=== PATIENT | male | born 1985 | race Caucasian/White ===

== ENCOUNTER 2019-10-22 16:51 | Emergency (ER) | payer SELFPAY ==
[~2019-10-22] VITALS: Ht 177.8 cm; Wt 77.0 kg
[2019-10-22 17:02] VITALS: BP 125/82
--- NOTE | 2019-10-22 17:09 | PHYS DOC ---
General Adult EDM: Chief Complaint: BACK PAIN OR INJURY HPI: HPI: 33-year-old male presents with left-sided low back pain. The pain is actually below the top line of his buttocks. It is just to the left of center. The patient was pulling out a fence post about 5 days ago when he felt a pop and had sudden pain. The pain seems to be increased rather than getting better. It is severe at this time. It is most painful to stand up straight. It is painful to walk. The patient is already on baclofen. He was told 5 or 6 years ago that he had degenerative disks that will get worse over time. He has not taken any other pain medicine. He denies any other injuries or complaints. He denies numbness, tingling, altered sensation. Review of Systems: Review of Systems: Constitutional: Denies fever or chills Eyes: Denies change in visual acuity HENT: Denies nasal congestion or sore throat Respiratory: Denies cough or shortness of breath Cardiovascular: Denies chest pain or edema GI: Denies abdominal pain, nausea, vomiting, bloody stools or diarrhea : Denies dysuria Musculoskeletal: Low back pain Integument: Denies rash Neurologic: Denies headache, focal weakness or sensory changes Endocrine: Denies polyuria or polydipsia Lymphatic: Denies swollen glands Psychiatric: Denies depression or anxiety Heart Score: Risk Factors: Risk Factors: DM, Current or recent (<one month) smoker, HTN, HLP, family history of CAD, obesity. Risk Scores: Score 0 - 3: 2.5% MACE over next 6 weeks - Discharge Home Score 4 - 6: 20.3% MACE over next 6 weeks - Admit for Clinical Observation Score 7 - 10: 72.7% MACE over next 6 weeks - Early Invasive Strategies Allergies: Allergies: Allergies Coded Allergies Type Severity Reaction Last Updated Verified hydromorphone Allergy Unknown 10/22/19 Yes Physical Exam: PE: Constitutional: Well developed, well nourished, no acute distress, non-toxic appearance. [] HENT: Normocephalic, atraumatic, bilateral external ears normal, oropharynx moist, no oral exudates, nose normal. [] Eyes: PERRLA, EOMI, conjunctiva normal, no discharge. [] Neck: Normal range of motion, no tenderness, supple, no stridor. [] Cardiovascular:Heart rate regular rhythm, no murmur [] Lungs & Thorax: Bilateral breath sounds clear to auscultation [] Abdomen: Bowel sounds normal, soft, no tenderness, no masses, no pulsatile ma sses. [] Skin: Warm, dry, no erythema, no rash. [] Back: Tenderness of the left sacroiliac joint with surrounding muscle spasm. [] Extremities: No tenderness, no cyanosis, no clubbing, ROM intact, no edema. [] Neurologic: Alert and oriented X 3, normal motor function, normal sensory function, no focal deficits noted. [] Psychologic: Affect normal, judgement normal, mood normal. [] EKG: EKG: [] Radiology/Procedures: Radiology/Procedures: [] Impressions: EXAM: AP, lateral and lumbosacral spot views of the lumbar spine DATE: 10/22/2019 5:04 PM INDICATION: Low back pain, injury COMPARISON: No Prior FINDINGS: 5 nonrib-bearing lumbar-type vertebral bodies. Vertebral body heights are preserved. No spondylolisthesis. No acute fracture. Mild L3-4 disc height loss. IMPRESSION: No acute lumbar spine fracture or subluxation. Electronically signed by: Clayton Ibanez MD (10/22/2019 5:52 PM) [facility] DICTATED AND SIGNED BY: CLAYTON IBANEZ MD DATE: 10/22/191751 CC: KERRI LAGUNA DO; PCP,SARANYA ~ Course & Med Decision Making: Course & Med Decision Making Pertinent Labs and Imaging studies reviewed. (See chart for details) The patient's lumbar x-ray is negative for acute findings. Based on my exam, I believe the patient has left sacroiliitis. I have given 4 mg of morphine IM in the ED. I will discharge him with a short course of [place] 5/325 as well as 5 days of prednisone 50 mg. He will continue take his baclofen. He is stable for discharge at this time. [] Dragon Disclaimer: Janeth Disclaimer: This electronic medical record was generated, in whole or in part, using a voice recognition dictation system. Departure Departure: Impression: Primary Impression: Sacroiliac joint dysfunction of left side Disposition: 01 HOME/RESIDENCE PRIOR TO ADM Condition: STABLE Referrals: PCP,SARANYA (PCP) Patient Instructions: Sacroiliac Joint Dysfunction Scripts Prednisone (PREDNISONE) 50 Mg Tablet 1 TAB PO DAILY for sacroiliac joint pain, #5 TAB Prov: KERRI LAGUNA DO 10/22/19 Hydrocodone Bit/Acetaminophen (NORCO 5-325 TABLET) 1 Each Tablet 1 TAB PO PRN Q6HRS PRN for PAIN, #10 TAB 0 Refills Prov: KERRI LAGUNA DO 10/22/19 Justification of Admission: Justification of Admission: Justification of Admission Dx: N/A KERRI LAGUNA DO Oct 22, 2019 17:08
[2019-10-22] MEDS ORDERED: MORPHINE SULFATE 4 MG/ML DISP.SYRIN. IM ONE (17:15)
--- NOTE | 2019-10-22 17:55 | RAD ---
EXAM: AP, lateral and lumbosacral spot views of the lumbar spine DATE: 10/22/2019 5:04 PM INDICATION: Low back pain, injury COMPARISON: No Prior FINDINGS: 5 nonrib-bearing lumbar-type vertebral bodies. Vertebral body heights are preserved. No spondylolisthesis. No acute fracture. Mild L3-4 disc height loss. IMPRESSION: No acute lumbar spine fracture or subluxation. Electronically signed by: Clayton Ibanez MD (10/22/2019 5:52 PM) [facility]
[2019-10-22] MEDS ORDERED: HYDR-3165 PO (17:59)
[2019-10-22] MEDS ORDERED: PRED50TA PO (17:59)
== END 2019-10-22 18:05 | disposition home or self-care (01) ==
LOC: ER 16:51
DX: M43.8X7 Other specified deforming dorsopathies, lumbosacral region (principal); Z88.5 Allergy status to narcotic agent
CPT/HCPCS: 72100; 96372; 99283; J2270

== ENCOUNTER 2019-10-24 14:40 | Emergency (ER) | payer SELFPAY ==
[~2019-10-24] VITALS: Ht 177.8 cm; Wt 77.0 kg
[2019-10-24 14:40] VITALS: BP 125/82
[~2019-10-24 14:40] MED LIST: HYDR-3165 PO; PRED50TA PO
[2019-10-24] MEDS ORDERED: CONTRAST GIVEN MC PRN (15:00)
[2019-10-24] MEDS ORDERED: IOHEXOL 300 MG/ML 75 ML VIAL. IV ONE (15:00)
[2019-10-24] MEDS ORDERED: IV NORMAL SALINE 1,000ML 1,000 ML IV ONE (15:00)
[2019-10-24] MEDS ORDERED: ONDANSETRON PF 4 MG/2 ML VIAL. IVP ONE (15:30)
[2019-10-24] MEDS ORDERED: MORPHINE SULFATE 4 MG/ML DISP.SYRIN. IV ONE ×2 (15:30→17:30)
--- NOTE | 2019-10-24 15:34 | PHYS DOC ---
Past History Past Medical History: Angina Past Surgical History: Other Additional Past Surgical Histo: VASECTOMY Alcohol Use: None General Adult EDM: Chief Complaint: GROIN PAIN HPI: HPI: Patient is a 33-year-old male presents to the ED with a chief complaint of left groin pain. Patient states that he felt swelling in the left groin which came up yesterday while he was driving. Patient states that he was seen in the ER few days ago with pain in his left hip. Patient was discharged home with pain medication. Patient denies dysuria, urethral discharge. Patient denies fever, chills, nausea, vomiting, diarrhea, this urea, chest pain, shortness of breath. Review of Systems: Review of Systems: Constitutional: Denies fever or chills Eyes: Denies change in visual acuity HENT: Denies nasal congestion or sore throat Respiratory: Denies cough or shortness of breath Cardiovascular: Denies chest pain or edema GI: Denies abdominal pain, nausea, vomiting, bloody stools or diarrhea : Denies dysuria but complains of painful swelling in his left groin Musculoskeletal: Denies back pain or joint pain Integument: Denies rash Neurologic: Denies headache, focal weakness or sensory changes Heart Score: Risk Factors: Risk Factors: DM, Current or recent (<one month) smoker, HTN, HLP, family history of CAD, obesity. Risk Scores: Score 0 - 3: 2.5% MACE over next 6 weeks - Discharge Home Score 4 - 6: 20.3% MACE over next 6 weeks - Admit for Clinical Observation Score 7 - 10: 72.7% MACE over next 6 weeks - Early Invasive Strategies Current Medications: Current Meds: Current Medications Medications (Trade) Dose Ordered Sig/[facility] Start Time Stop Time Status Last Admin Dose Admin Info (Do NOT chart on this entry -- for MONITORING) 1 each PRN DAILY PRN 10/24/19 15:00 10/26/19 14:59 Iohexol (Omnipaque 300 Mg/ml) 75 ml 1X ONCE 10/24/19 15:00 10/24/19 15:01 DC 10/24/19 15:15 75 ML Morphine Sulfate (Morphine 4mg Syringe) 4 mg 1X ONCE 10/24/19 15:30 10/24/19 15:31 Ondansetron HCl (Zofran) 4 mg 1X ONCE 10/24/19 15:30 10/24/19 15:31 Sodium Chloride 1,000 ml @ 1,000 mls/hr 1X ONCE 10/24/19 15:00 10/24/19 15:59 Allergies: Allergies: Allergies Coded Allergies Type Severity Reaction Last Updated Verified hydromorphone Allergy Unknown ITCHY/RASH 10/24/19 Yes Physical Exam: PE: Constitutional: Well developed, well nourished, no acute distress, non-toxic appearance. [] HENT: Normocephalic, atraumatic Eyes: EOMI Neck: Normal range of motion, Supple Respiratory: No respiratory distress Abdomen: Bowel sounds normal, soft, no tenderness : Tender area in the left groin most likely a lymph node Extremities: No tenderness, ROM intact Neurologic: Alert and oriented X 3 EKG: EKG: [] Radiology/Procedures: Radiology/Procedures: [] Impressions: CT Abd/Pelvis IMPRESSION: 1. A prominent left inguinal lymph node is seen with mild associated infiltration and associated subcutaneous soft tissues infiltration. Although these findings may be related to soft tissue contusion, lymphadenitis is also a primary consideration, possibly from infectious or inflammatory process. However no definite suppuration or abscess formation is identified. 2. Mild bladder wall thickening may be reactive or seen with cystitis and can be correlated with urinalysis Course & Med Decision Making: Course & Med Decision Making Pertinent Labs and Imaging studies reviewed. (See chart for details) Ordered labs, UA, CT abdomen pelvis with IV contrast. Patient is also given morphine 4 mg IV and Zofran 4 mg IV in the ER. Dragon Disclaimer: Dragjuan luis Disclaimer: This electronic medical record was generated, in whole or in part, using a voice recognition dictation system. Departure Departure: Impression: Primary Impression: Lymphadenopathy Additional Impression: Cystitis Disposition: HOME/RESIDENCE PRIOR TO ADM Condition: STABLE Referrals: PCP,NO (PCP) Patient Instructions: Lymphangiography Additional Instructions: Discussed results and plan of care with patient. Patient is instructed to follow up with PCP in one to 2 days. Appropriate discharge instructions given to patient to return to the ED or to seek immediate medical evaluation. Patient is instructed to return to the ED if symptoms worsen or if any concerns. Scripts Sulfamethoxazole/Trimethoprim (BACTRIM DS TABLET) 1 Each Tablet 1 TAB PO BID for CYSTITIS for 10 Days, #20 TAB 0 Refills Prov: SUKHJINDER FAIRCHILD DO 10/24/19 Hydrocodone Bit/Acetaminophen (NORCO 5-325 TABLET) 1 Each Tablet 1 TAB PO PRN Q6HRS PRN for PAIN for 3 Days, #15 TAB 0 Refills Prov: SUKHJINDER FAIRCHILD DO 10/24/19 Justification of Admission: Justification of Admission: Justification of Admission Dx: SUKHJINDER Watts DO Oct 24, 2019 15:34
--- NOTE | 2019-10-24 15:35 | RAD ---
EXAM: CT Abdomen and Pelvis with IV contrast CLINICAL HISTORY: LEFT GROIN PAIN COMPARISON: none TECHNIQUE: Helical CT of the abdomen and pelvis was performed following the administration of IV contrast. Axial, coronal and sagittal reformatted images were generated. ---PQRS compliance statement - One or more of the following individualized dose reduction techniques were utilized for this study: 1. Automated exposure control 2. Adjustment of the mA and/or kV according to patient size 3. Use of iterative reconstruction technique--- FINDINGS: Lower chest: Lung bases are clear. Abdomen and pelvis: Liver and biliary system: No focal liver lesion. Gallbladder is normal. No biliary ductal dilatation. Spleen: Calcified granuloma are seen within the spleen. Pancreas: Unremarkable Adrenal glands: Unremarkable Kidneys: Symmetric nephrograms. No focal renal lesion. No hydronephrosis. No hydroureter. Lymph nodes/retroperitoneum: Although there is no abdominal or pelvic lymphadenopathy by size criteria, there are prominent left inguinal lymph nodes with mild associated infiltration for example a left inguinal lymph node measures 1.2 x 0.8 cm. Associated subcutaneous soft tissue infiltration is seen. Vessels: Aorta is normal in caliber. Bowel/Peritoneal cavity: Appendix is normal. Moderate colonic stool content is seen. No small or large bowel dilatation. No bowel obstruction. No abdominal or pelvic ascites. Abdominal wall: Subcutaneous infiltration overlying the left thigh in the region of a small lymph node as described above. Bladder: Mild bladder wall thickening may be seen with cystitis. Bones: Prominent Schmorl's node at the superior endplate of L4. No aggressive osseous lesion. IMPRESSION: 1. A prominent left inguinal lymph node is seen with mild associated infiltration and associated subcutaneous soft tissues infiltration. Although these findings may be related to soft tissue contusion, lymphadenitis is also a primary consideration, possibly from infectious or inflammatory process. However no definite suppuration or abscess formation is identified. 2. Mild bladder wall thickening may be reactive or seen with cystitis and can be correlated with urinalysis Electronically signed by: Clayton Ibanez MD (10/24/2019 3:32 PM) [facility]
[2019-10-24 15:36] LABS: BASO % 0 % (0-3); EOS % 0 % (0-3); HEMATOCRIT 46.6 % (39.0-53.0); LYMPH # 0.4 x10^3/uL (1.0-4.8); LYMPH % 8 % (24-48); MEAN CORPUSCULAR HEMOGLOBIN 30 pg (25-35); MEAN CORPUSCULAR HGB CONC 34 g/dL (31-37); MEAN CORPUSCULAR VOLUME 87 fL (79-100); MONO # 0.1 x10^3/uL (0.0-1.1); MONO % 2 % (0-9); NEUT # 4.8 x10^3uL (1.8-7.7); NEUT % 90 % (31-73); PLATELET COUNT 189 x10^3/uL (140-400); RED BLOOD COUNT 5.33 x10^6/uL (4.30-5.70); RED CELL DISTRIBUTION WIDTH 13.8 % (11.5-14.5); WHITE BLOOD COUNT 5.3 x10^3/uL (4.0-11.0)
[2019-10-24 15:42] LABS: ANION GAP 9 (6-14); BLOOD UREA NITROGEN 9 mg/dL (8-26); BUN/CREATININE RATIO 8 (6-20); CALCIUM 8.8 mg/dL (8.5-10.1); CARBON DIOXIDE 26 mmol/L (21-32); CHLORIDE 101 mmol/L (98-107); CREATININE 1.2 mg/dL (0.7-1.3); GFR 68.9; GLUCOSE 151 mg/dL (70-99); SODIUM 136 mmol/L (136-145)
[2019-10-24 15:48] LABS: ALBUMIN 3.7 g/dL (3.4-5.0); ALBUMIN/GLOBULIN RATIO 0.9 (1.0-1.7); ALK PHOS 114 U/L (46-116); ALT (SGPT) 88 U/L (16-63); AST (SGOT) 38 U/L (15-37); TOTAL BILIRUBIN 1.3 mg/dL (0.2-1.0); TOTAL PROTEIN 7.8 g/dL (6.4-8.2)
[2019-10-24 15:50] LABS: C REACTIVE PROTEIN < 0.5 mg/L (0-3.3)
[2019-10-24 16:45] LABS: BACTERIA,URINE 0 /HPF (0-FEW); BILIRUBIN,URINE NEG (NEG); CLARITY,URINE CLEAR; COLOR,URINE YELLOW; GLUCOSE,URINE NEG (NEG); NITRITE,URINE NEG (NEG); RBC,URINE RARE /HPF (0-2); SQUAMOUS EPITHELIAL CELL,UR OCC /LPF; UROBILINOGEN,URINE 0.2 mg/dL (0.2 mg/dL); WBC,URINE RARE /HPF (0-4)
[2019-10-24] MEDS ORDERED: SULF1TAB24 PO (17:07)
[2019-10-24] MEDS ORDERED: HYDR-3165 PO (17:07)
== END 2019-10-24 17:17 | disposition home or self-care (01) ==
LOC: ER 14:40
DX: N30.90 Cystitis, unspecified without hematuria (principal); R59.1 Generalized enlarged lymph nodes; R10.32 Left lower quadrant pain; R60.0 Localized edema; M25.552 Pain in left hip; Z90.89 Acquired absence of other organs; Z88.5 Allergy status to narcotic agent
CPT/HCPCS: 36415; 74177; 80053; 81001; 85025; 86140; 96374; 96375; 96376; 99285; J2270; J2405; J7030; Q9967

== ENCOUNTER 2019-10-26 16:27 | Emergency (ER) | payer SELFPAY ==
[~2019-10-26] VITALS: Ht 177.8 cm; Wt 77.0 kg
[~2019-10-26 16:27] MED LIST changes: +SULF1TAB24 PO
[2019-10-26 16:41] VITALS: BP 134/86
[2019-10-26] MEDS ORDERED: VALA10008 PO (16:54)
[2019-10-26] MEDS ORDERED: OXYC1TAB15 PO (16:54)
--- NOTE | 2019-10-26 16:55 | PHYS DOC ---
Past History Past Medical History: Angina Past Surgical History: Other Additional Past Surgical Histo: VASECTOMY Smoking: Non-smoker Alcohol Use: None Drug Use: None General Adult EDM: Chief Complaint: SKIN RASH/ABSCESS HPI: HPI: 33-year-old male presents with report of painful rash to left lower abdomen extending to his back which he noticed 2 days ago. Patient was seen recently in the emergency department x2 for concern for SI joint dysfunction and/or lymphadenopathy/infection. Patient had been started on 5-day course of prednisone 50 mg. Patient also has been prescribed a total of 25 tabs of [place] 5/325 mg in the past week. Imaging from recent visit showed lymphadenopathy to the groin. Patient reports pain is not well controlled with hydrocodone and therefore he "got rid of it ". Reports recent increase in stressful situations. Reports he is currently through going through a divorce. Review of Systems: Review of Systems: Constitutional: Denies fever or chills Eyes: Denies redness or eye pain HENT: Denies nasal congestion or sore throat Respiratory: Denies cough or shortness of breath Cardiovascular: Denies chest pain or palpitations GI: Reports left lower quadrant abdominal pain; denies nausea or vomiting : Denies dysuria or hematuria Musculoskeletal: Reports left-sided lower lumbar back pain Integument: Reports painful rash and skin lesions Neurologic: Denies headache, focal weakness or sensory changes Complete systems were reviewed and found to be within normal limits, except as documented in this note. Allergies: Allergies: Allergies Coded Allergies Type Severity Reaction Last Updated Verified hydromorphone Allergy Unknown ITCHY/RASH 10/24/19 Yes Physical Exam: PE: Constitutional: Well developed, well nourished, no acute distress, non-toxic appearance HENT: Normocephalic, atraumatic Eyes: Conjunctiva normal, no discharge Neck: Normal range of motion, supple Lungs & Thorax: No respiratory distress, equal chest rise and fall Skin: Warm, dry, no erythema, painful vesicular rash in groups extending from left lower quadrant to left lumbar region along dermatome without crossing midline Back: No midline tenderness, no CVA tenderness Extremities: No tenderness, ROM intact, no edema Neurologic: Alert and oriented X 3, no focal deficits noted Psychologic: Affect normal, judgment normal Current Patient Data: Vital Signs: Vital Signs Date Time Temp Pulse Resp B/P (MAP) Pulse Ox O2 Delivery O2 Flow Rate FiO2 6/27/20 16:41 97.9 76 18 134/86 (102) 98 EKG: EKG: [] Radiology/Procedures: Radiology/Procedures: [] Course & Med Decision Making: Course & Med Decision Making Patient presents with HPI and physical exam concerning for shingles rash. Patient recently had been given 5-day course of prednisone 50 mg. Patient also had been previously prescribed hydrocodone pain medication per [facility] and [facility] review. Antivirals initiated. Pain addressed. Patient stable for discharge with outpatient follow-up with PCP. Discussed findings and plan with patient, who acknowledges understanding and agreement. Janeth Disclaimer: Janeth Disclaimer: This electronic medical record was generated, in whole or in part, using a voice recognition dictation system. Departure Departure: Impression: Primary Impression: Shingles Qualified Codes: B02.9 - Zoster without complications Disposition: HOME/RESIDENCE PRIOR TO ADM Condition: STABLE Referrals: PCP,NO (PCP) Patient Instructions: Shingles, [id number] Additional Instructions: May also use over the counter Ibuprofen 600mg (three over the counter tabs) three times daily. Scripts Valacyclovir Hcl (VALACYCLOVIR) 1,000 Mg Tablet 1 TAB PO TID for Shingles, #21 TAB Prov: MANUEL MUNOZ DO 10/26/19 Oxycodone Hcl/Acetaminophen (PERCOCET 5-325 MG TABLET ) 1 Each Tablet 0.5-1 TAB PO Q4-6HRS PRN for PAIN MDD 2 Tablet(s), #8 TAB 0 Refills Prov: MANUEL MUNOZ DO 10/26/19 Justification of Admission: Justification of Admission: Justification of Admission Dx: N/A MANUEL MUNOZ DO Oct 26, 2019 16:55
[2019-10-26] MEDS ORDERED: valACYclovir 500 MG TABLET. PO ONE (17:00)
[2019-10-26] MEDS ORDERED: oxyCODONE/APAP 5/325 1 TAB TABLET PO ONE (17:00)
[2019-10-26] MEDS ORDERED: KETOROLAC 30 MG/ML VIAL. IM ONE (17:15)
== END 2019-10-26 17:07 | disposition home or self-care (01) ==
LOC: ER 16:27
DX: B02.9 Zoster without complications (principal); R10.32 Left lower quadrant pain; R21 Rash and other nonspecific skin eruption; M54.5 Low back pain; Z90.89 Acquired absence of other organs; Z98.890 Other specified postprocedural states; Z88.5 Allergy status to narcotic agent
CPT/HCPCS: 99283

== ENCOUNTER 2019-11-09 15:06 | Emergency (ER) | payer SELFPAY ==
[~2019-11-09] VITALS: Ht 185.4 cm; Wt 84.0 kg
[~2019-11-09 15:06] MED LIST changes: +OXYC1TAB15 PO; +VALA10008 PO
[2019-11-09 15:22] VITALS: BP 108/72
--- NOTE | 2019-11-09 15:42 | PHYS DOC ---
Past History Past Medical History: No Pertinent History Past Surgical History: No Surgical History Additional Past Surgical Histo: VASECTOMY Smoking: Non-smoker Additional Smoking Information: pt chews Alcohol Use: Occasionally Drug Use: None General Adult EDM: Chief Complaint: MECHANICAL FALL HPI: HPI: Patient is a 33-year-old male who presented to ER today for evaluation of low back pain and left knee pain. Patient was on a roof about 9 feet above, rolled out landed on his feet, then stumbled and fell backward on his back. Patient complained of left knee and low back pain since. Patient denies any head or neck injury, denies any bowel or bladder incontinence, no upper back pain, no upper extremity pain. Patient denies any hip pain, no pelvic pain, no feet or heel pain. Patient denies any pain when he walks on his feet, pain in his left knee when he twisted. Review of Systems: Review of Systems: Constitutional: Denies fever or chills Eyes: Denies change in visual acuity HENT: Denies nasal congestion or sore throat Respiratory: Denies cough or shortness of breath Cardiovascular: Denies chest pain or edema GI: Denies abdominal pain, nausea, vomiting, bloody stools or diarrhea : Denies dysuria Musculoskeletal: Positive for low back pain, positive for left knee pain. Integument: Denies rash Neurologic: Denies headache, focal weakness or sensory changes Endocrine: Denies polyuria or polydipsia Lymphatic: Denies swollen glands Psychiatric: Denies depression or anxiety Heart Score: Risk Factors: Risk Factors: DM, Current or recent (<one month) smoker, HTN, HLP, family history of CAD, obesity. Risk Scores: Score 0 - 3: 2.5% MACE over next 6 weeks - Discharge Home Score 4 - 6: 20.3% MACE over next 6 weeks - Admit for Clinical Observation Score 7 - 10: 72.7% MACE over next 6 weeks - Early Invasive Strategies Allergies: Allergies: Allergies Coded Allergies Type Severity Reaction Last Updated Verified hydromorphone Allergy Unknown ITCHY/RASH 10/24/19 Yes Physical Exam: PE: Constitutional: Well developed, well nourished, no acute distress, non-toxic appearance. [] HENT: Normocephalic, atraumatic, bilateral external ears normal, oropharynx moist, no oral exudates, nose normal. [] Eyes: PERRLA, EOMI, conjunctiva normal, no discharge. [] Neck: Normal range of motion, no tenderness, supple, no stridor. [] Cardiovascular:Heart rate regular rhythm, no murmur [] Lungs & Thorax: Bilateral breath sounds clear to auscultation [] Abdomen: Bowel sounds normal, soft, no tenderness, no masses, no pulsatile masses. [] Skin: Warm, dry, no erythema, no rash. [] Back: No tenderness, no CVA tenderness. [] Extremities: No tenderness, no cyanosis, no clubbing, ROM intact, no edema. There is no swelling or contusion on her left knee left knee joint is stable, there is no tenderness on the calcaneus area of the left foot area. There is no pelvic tenderness to palpation, there is no hip tenderness to palpation. There is lower lumbar spine tenderness to palpation on the L4 and L5 area. No bony step-off. Neurologic: Alert and oriented X 3, normal motor function, normal sensory fun ction, no focal deficits noted. [] Psychologic: Affect normal, judgement normal, mood normal. [] Current Patient Data: Vital Signs: Vital Signs Date Time Temp Pulse Resp B/P (MAP) Pulse Ox O2 Delivery O2 Flow Rate FiO2 11/09/19 15:22 98.2 76 16 108/72 (84) 98 Room Air EKG: EKG: [] Radiology/Procedures: Radiology/Procedures: [][place] [address] IMAGING REPORT Signed PATIENT: SHIRA MATTA LACCOUNT: [id number] : 1985 LOCATION: ER AGE: 33 SEX: M EXAM STATUS: REG ER ORD. PHYSICIAN: JUAN HAYES DO REASON: left knee pain, fell off the roof 2 days ago PROCEDURE: KNEE LEFT 3V KNEE LEFT 3V History: Reason: left knee pain, fell off the roof 2 days ago / Spl. Instructions: / History: Technique: 3 views left knee. Comparison: None. Findings: Normal alignment. No fracture. Minimal knee joint effusion. Impression: 1. No acute osseous abnormality. Electronically signed by: Kieran Shaikh DO (11/09/2019 4:16 PM) [facility] DICTATED AND SIGNED BY: KIERAN SHAIKH DO DATE: 11/09/191615 CC: PCPSARANYA; JUAN HAYES DO ~ [address] [address] IMAGING REPORT Signed PATIENT: SHIRA MATTA LACCOUNT: [id number] : 1985 LOCATION: ER AGE: 33 SEX: M EXAM STATUS: REG ER ORD. PHYSICIAN: JUAN HAYES DO REASON: lower back pain, fell off the roof 2 days ago PROCEDURE: LUMBAR SPINE 2-3V LUMBAR SPINE 2-3V History: Reason: lower back pain, fell off the roof 2 days ago / Spl. Instructions: / History: Technique: 3 views lumbar spine. Comparison: None. Findings: Normal alignment. Normal vertebral body height. No fracture. Mild L5-S1 disc space narrowing. Impression: 1. No acute osseous abnormality. Electronically signed by: Kieran Shaikh DO (11/09/2019 4:15 PM) [facility] DICTATED AND SIGNED BY: KIERAN SHAIKH DO DATE: 11/09/191614 CC: PCPSARANYA; JUAN HAYES DO ~ Course & Med Decision Making: Course & Med Decision Making Pertinent Labs and Imaging studies reviewed. (See chart for details) [] Dragon Disclaimer: Dragon Disclaimer: This electronic medical record was generated, in whole or in part, using a voice recognition dictation system. Departure Departure: Impression: Primary Impression: Lower back pain Additional Impression: Left knee pain Disposition: 01 HOME/RESIDENCE PRIOR TO ADM Condition: STABLE Referrals: PCP,SARANYA (PCP) please follow up with your doctor as needed Patient Instructions: Back Pain, Adult, Knee Pain Additional Instructions: Thank you for visiting our Emergency Department. We appreciate you trusting us with your care. If any additional problems come up don't hesitate to return to visit us. Please follow up with your primary care provider so they can plan additional care if needed and know about the problem that you had. If symptoms worsen come back to the Emergency Department. Any concerning symptoms that start such as chest pain, shortness of air, weakness or numbness on one side of the body, running high fevers or any other concerning symptoms return to the ER. Scripts Naproxen Sodium (ANAPROX DS) 550 Mg Tablet 1 TAB PO BID for pain for 15 Days, #30 TAB 0 Refills Prov: JUAN HAYES DO 11/09/19 Tramadol Hcl (TRAMADOL HCL) 50 Mg Tablet 50 MG PO PRN Q6HRS PRN for PAIN, #12 TAB Prov: JUAN HAYES DO 11/09/19 Justification of Admission: Justification of Admission: Justification of Admission Dx: N/A JUAN HAYES DO Nov 09, 2019 15:42
--- NOTE | 2019-11-09 16:18 | RAD ---
LUMBAR SPINE 2-3V History: Reason: lower back pain, fell off the roof 2 days ago / Spl. Instructions: / History: Technique: 3 views lumbar spine. Comparison: None. Findings: Normal alignment. Normal vertebral body height. No fracture. Mild L5-S1 disc space narrowing. Impression: 1. No acute osseous abnormality. Electronically signed by: Kieran Romo DO (11/09/2019 4:15 PM) [facility]
--- NOTE | 2019-11-09 16:19 | RAD ---
KNEE LEFT 3V History: Reason: left knee pain, fell off the roof 2 days ago / Spl. Instructions: / History: Technique: 3 views left knee. Comparison: None. Findings: Normal alignment. No fracture. Minimal knee joint effusion. Impression: 1. No acute osseous abnormality. Electronically signed by: Kieran Romo DO (11/09/2019 4:16 PM) [facility]
[2019-11-09] MEDS ORDERED: TRAM50TA PO (16:35)
[2019-11-09] MEDS ORDERED: NAPR-682 PO (16:35)
== END 2019-11-09 16:41 | disposition home or self-care (01) ==
LOC: ER 15:06
DX: M54.5 Low back pain (principal); M25.562 Pain in left knee; G89.11 Acute pain due to trauma; F17.220 Nicotine dependence, chewing tobacco, uncomplicated; Z88.5 Allergy status to narcotic agent; W17.89XA Other fall from one level to another, initial encounter; Y93.89 Activity, other specified; Y92.89 Other specified places as the place of occurrence of the external cause; Y99.8 Other external cause status
CPT/HCPCS: 72100; 73562; 99284

== ENCOUNTER 2020-01-11 12:54 | Emergency (ER) | payer SELFPAY ==
[~2020-01-11] VITALS: Ht 185.4 cm; Wt 84.0 kg
[~2020-01-11 12:54] MED LIST changes: +NAPR-682 PO; +TRAM50TA PO
--- NOTE | 2020-01-11 13:02 | PHYS DOC ---
Past History Past Medical History: No Pertinent History Past Surgical History: No Surgical History Additional Past Surgical Histo: VASECTOMY Smoking: Non-smoker Alcohol Use: Occasionally Drug Use: None Adult General Chief Complaint Chief Complaint: CHEST PAIN HPI HPI Patient is a 34-year-old male who presents with substernal chest pain. Onset was 1 hour prior to arrival while in the shower. Nothing known makes better or worse. He has not taken anything in attempt to alleviate the pain. Patient describes it as " angina" and reports substernal pain that radiates to left upper extremity. Patient reports 13 years ago having EKG abnormalities with similar pain and subsequently had a cardiac cath which was negative. He denies any family history of early cardiac disease, he abuses tobacco but otherwise does not use any illicit drugs, have any concerning comorbidities such as hypertension or hypercholesterolemia, no fever, no COVID-like symptoms, no shortness of breath, no abdominal pain. He is requesting pain control at this time Review of Systems Review of Systems Fourteen body systems of review of systems have been reviewed. See HPI for pertinent positives and negative responses, other mcarthur all other systems are negative, non-pertinent or non-contributory Allergies Allergies Allergies Coded Allergies Type Severity Reaction Last Updated Verified hydromorphone Allergy Unknown ITCHY/RASH 10/24/19 Yes Physical Exam Physical Exam Constitutional: Well developed, well nourished, no acute distress, non-toxic appearance. HENT: Normocephalic, atraumatic, bilateral external ears normal, oropharynx moist, no oral exudates, nose normal. Eyes: PERRLA, EOMI, conjunctiva normal, no discharge. Neck: Normal range of motion, no tenderness, supple, no stridor. Cardiovascular: Heart rate regular, sinus rhythm, no murmurs rubs or gallops Lungs & Thorax: Bilateral breath sounds clear to auscultation Abdomen: Bowel sounds normal, soft, no tenderness, no masses, no pulsatile masses. Nonsurgical abdomen, no peritoneal signs Skin: Warm, dry, no erythema, no rash. Back: No tenderness, no CVA tenderness. Extremities: No tenderness, no cyanosis, no clubbing, ROM intact, no edema. Neurologic: Alert and oriented X 3, grossly normal motor & sensory function, no focal deficits noted. Psychologic: Affect normal, judgement normal, mood normal. Current Patient Data Vital Signs Vital Signs Date Time Temp Pulse Resp B/P (MAP) Pulse Ox O2 Delivery O2 Flow Rate FiO2 01/11/20 14:15 98.0 83 20 143/96 (112) 100 Lab Results Laboratory Tests Test 01/11/20 12:57 White Blood Count 6.8 x10^3/uL (4.0-11.0) Red Blood Count 4.85 x10^6/uL (4.30-5.70) Hemoglobin 14.8 g/dL (13.0-17.5) Hematocrit 42.5 % (39.0-53.0) Mean Corpuscular Volume 88 fL (79-100) Mean Corpuscular Hemoglobin 31 pg (25-35) Mean Corpuscular Hemoglobin Concent 35 g/dL (31-37) Red Cell Distribution Width 13.3 % (11.5-14.5) Platelet Count 204 x10^3/uL (140-400) Neutrophils (%) (Auto) 68 % (31-73) Lymphocytes (%) (Auto) 22 % (24-48) Monocytes (%) (Auto) 9 % (0-9) Eosinophils (%) (Auto) 1 % (0-3) Basophils (%) (Auto) 1 % (0-3) Neutrophils # (Auto) 4.6 x10^3uL (1.8-7.7) Lymphocytes # (Auto) 1.5 x10^3/uL (1.0-4.8) Monocytes # (Auto) 0.6 x10^3/uL (0.0-1.1) Eosinophils # (Auto) 0.1 x10^3/uL (0.0-0.7) Basophils # (Auto) 0.0 x10^3/uL (0.0-0.2) Sodium Level 143 mmol/L (136-145) Potassium Level 3.5 mmol/L (3.5-5.1) Chloride Level 105 mmol/L (98-107) Carbon Dioxide Level 27 mmol/L (21-32) Anion Gap 11 (6-14) Blood Urea Nitrogen 11 mg/dL (8-26) Creatinine 1.0 mg/dL (0.7-1.3) Estimated GFR (Cockcroft-Gault) 84.5 BUN/Creatinine Ratio 11 (6-20) Glucose Level 79 mg/dL (70-99) Calcium Level 9.8 mg/dL (8.5-10.1) Total Bilirubin 1.1 mg/dL (0.2-1.0) Aspartate Amino Transf (AST/SGOT) 24 U/L (15-37) Alanine Aminotransferase (ALT/SGPT) 37 U/L (16-63) Alkaline Phosphatase 118 U/L (46-116) Troponin I Quantitative < 0.017 ng/mL (0-0.055) Total Protein 7.6 g/dL (6.4-8.2) Albumin 3.7 g/dL (3.4-5.0) Albumin/Globulin Ratio 0.9 (1.0-1.7) Lipase 94 U/L (73-393) EKG EKG EKG ordered and interpreted by myself at 1301 hrs. as sinus rhythm at 75 bpm, unremarkable intervals, no axis deviation, no acute ischemic findings, no STEMI Radiology/Procedures Radiology/Procedures PROCEDURE: CHEST AP ONLY EXAM: Chest, single view. HISTORY: Chest pain. COMPARISON: None. FINDINGS: A frontal view of the chest is obtained. There is no infiltrate, pleural effusion or pneumothorax. The heart is normal in size. IMPRESSION: No acute pulmonary finding. Electronically signed by: Lanette Peterson MD (01/11/2020 1:11 PM) [id number] ] Course & Med Decision Making Course & Med Decision Making Ambulatory well-appearing patient seen on immediate ER arrival ABCs non-concerning Comprehensive history and physical exam obtained, subsequent diagnostic studies ordered IV access obtained, 162 mg aspirin administered ER work-up reviewed, grossly non-concerning, no emergent and/or surgical findings Patient is low risk for cardiac disease or other serious pathology, I discussed this at length with patient. At present, no further indication for advanced diagnostic work-up and/or need for admission Patient continually asking for pain medication. I advised him to use NSAIDs and/or Tylenol as needed for pain with heat application to chest wall I discussed most likely self-limiting disease course with patient and he was fit for discharge with close PCP follow-up. He is from [place] and has a PCP there, he reports he will be seen in upcoming 1 to 10 days for outpatient follow-up, I feel this is appropriate Strict return precautions discussed with good understanding by patient, all questions and concerns addressed prior to ER departure in stable condition with continued supportive care advised Janeth Disclaimer Janeth Disclaimer This electronic medical record was generated, in whole or in part, using a voice recognition dictation system. The HEART Score for CP Pts HEART Score for Chest Pain: HEART Score for Chest Pain Response (Comments) Value History Slighlty/Non-Suspicious 0 ECG Normal 0 Age < 45 0 Risk Factors No Risk Factors 0 Troponin < Normal Limit 0 Total 0 Risk Factors: Risk Factors: DM, Current or recent (<one month) smoker, HTN, HLP, family history of CAD, obesity. Risk Scores: Score 0 - 3: 2.5% MACE over next 6 weeks - Discharge Home Score 4 - 6: 20.3% MACE over next 6 weeks - Admit for Clinical Observation Score 7 - 10: 72.7% MACE over next 6 weeks - Early Invasive Strategies PERC Rule for PE PERC Rule for PE Response (Comments) Value Age > 50: No 0 HR > 100: No 0 Sa02 on room air <95%: No 0 Unilateral leg swelling: No 0 Hemoptysis: No 0 Recent surgery or trauma: No 0 Prior PE or DVT: No 0 Hormone use: No 0 Total 0 Departure Departure: Impression: Primary Impression: Chest pain, unspecified Disposition: 01 HOME/RESIDENCE PRIOR TO ADM Condition: STABLE Referrals: PCP,NO (PCP) Patient Instructions: Chest Pain (Nonspecific) Justification of Admission: Justification of Admission: Justification of Admission Dx: N/A JARED HILL DO Jan 11, 2020 13:02
--- NOTE | 2020-01-11 13:08 | EKG ---
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
--- NOTE | 2020-01-11 13:14 | RAD ---
EXAM: Chest, single view. HISTORY: Chest pain. COMPARISON: None. FINDINGS: A frontal view of the chest is obtained. There is no infiltrate, pleural effusion or pneumothorax. The heart is normal in size. IMPRESSION: No acute pulmonary finding. Electronically signed by: Lanette Peterson MD (01/11/2020 1:11 PM) [id number]
[2020-01-11 13:28] LABS: BASO % 1 % (0-3); EOS # 0.1 x10^3/uL (0.0-0.7); EOS % 1 % (0-3); HEMATOCRIT 42.5 % (39.0-53.0); HEMOGLOBIN 14.8 g/dL (13.0-17.5); LYMPH # 1.5 x10^3/uL (1.0-4.8); LYMPH % 22 % (24-48); MEAN CORPUSCULAR HEMOGLOBIN 31 pg (25-35); MEAN CORPUSCULAR HGB CONC 35 g/dL (31-37); MEAN CORPUSCULAR VOLUME 88 fL (79-100); MONO # 0.6 x10^3/uL (0.0-1.1); MONO % 9 % (0-9); NEUT # 4.6 x10^3uL (1.8-7.7); NEUT % 68 % (31-73); PLATELET COUNT 204 x10^3/uL (140-400); RED BLOOD COUNT 4.85 x10^6/uL (4.30-5.70); RED CELL DISTRIBUTION WIDTH 13.3 % (11.5-14.5); WHITE BLOOD COUNT 6.8 x10^3/uL (4.0-11.0)
[2020-01-11 13:29] LABS: CALCIUM 9.8 mg/dL (8.5-10.1); GFR 84.5; POTASSIUM 3.5 mmol/L (3.5-5.1)
[2020-01-11] MEDS ORDERED: ASPIRIN CHEWABLE 81 MG TABLET. PO ONE (13:30)
[2020-01-11 13:35] LABS: ALBUMIN 3.7 g/dL (3.4-5.0); ALBUMIN/GLOBULIN RATIO 0.9 (1.0-1.7); TOTAL BILIRUBIN 1.1 mg/dL (0.2-1.0); TOTAL PROTEIN 7.6 g/dL (6.4-8.2)
[2020-01-11] MEDS ORDERED: ACETAMINOPHEN 325 MG TABLET PO ONE (14:00)
[2020-01-11 14:15] VITALS: BP 143/96
== END 2020-01-11 14:33 | disposition home or self-care (01) ==
LOC: ER 12:54
DX: R07.2 Precordial pain (principal); Z88.5 Allergy status to narcotic agent
CPT/HCPCS: 36415; 71045; 80053; 83690; 84484; 85025; 93005; 99285

== ENCOUNTER 2020-04-13 23:55 | Emergency (ER) | payer SELFPAY ==
[~2020-04-13] VITALS: Ht 185.4 cm; Wt 84.0 kg
--- NOTE | 2020-04-14 00:13 | PHYS DOC ---
Past History Past Medical History: No Pertinent History Past Surgical History: No Surgical History Additional Past Surgical Histo: VASECTOMY Smoking: Non-smoker Alcohol Use: Occasionally Drug Use: None General Adult EDM: Chief Complaint: BACK PAIN - NO INJURY HPI: HPI: "..I first injuried my back about 6 months ago.. then I was deer [place].. [place].. and terrie twisted it wrong again.. two weeks ago.. it got better.. but 2 nights ago.. I terrie re- injuried.. it.. I was seen at .. they did a big work up.. even a MRI.. and they said I had some discs bulged.. They gave me some muscle relaxers and some pain pills... But it has not really helped completely... I am still hurting tonight.... They never explained while I left leg is burning clear down to my little toes..."... they gave me some lidocaine patches but it makes my skin irritated..." Patient is a 34 year old male who presents with above hx and complains of back pain. Pain is at the L3-4 level that radiates down left leg. Pain appears to follow the sciatic root on the left. Straight leg lift exacerbates his pain on the left. Patient has no midline tenderness. Patient has no saddle loss. Gin ent has no problems with defecation or urination. Patient has had no fever or chills. Patient has not IV drug user. Patient does smoke tobacco and occasional marijuana. Recent travel from [facility] to visit a girlfriend here in [facility]. Patient has also seen a doctor in [facility]. No history of immunosuppression. No history of Covid risk. Patient states that BC powders did seem to help his pain. Patient states he did not like the narcotic tablets or the muscle relaxers because they made him feel "funny." or "cloudy". Review of Systems: Review of Systems: Constitutional: Denies fever or chills Eyes: Denies change in visual acuity HENT: Denies nasal congestion or sore throat Respiratory: Denies cough or shortness of breath Cardiovascular: Denies chest pain or edema GI: Denies abdominal pain, nausea, vomiting, bloody stools or diarrhea : Denies dysuria Musculoskeletal: Complains of left lumbar sacral back pain and sciatic pain Integument: Denies rash Neurologic: Denies headache, focal weakness or sensory changes Endocrine: Denies polyuria or polydipsia Lymphatic: Denies swollen glands Psychiatric: Denies depression or anxiety Family History: Family History: Noncontributory to presentation Current Medications: Current Meds: See nursing for home meds Allergies: Allergies: Allergies Coded Allergies Type Severity Reaction Last Updated Verified hydromorphone Allergy Unknown ITCHY/RASH 10/24/19 Yes Physical Exam: PE: Constitutional: Moderate acute distress, non-toxic appearance. [] HENT: Normocephalic, atraumatic, bilateral external ears normal, oropharynx moist, no oral exudates, nose normal. Poor dentition Eyes: PERRLA, EOMI, conjunctiva normal, no discharge. [] Neck: Normal range of motion, no tenderness, supple, no stridor. [] Cardiovascular:Heart rate regular rhythm, no murmur [] Lungs & Thorax: Bilateral breath sounds equal apex with scattered wheezes on auscultation [] Abdomen: Bowel sounds normal, soft, no tenderness, no masses, no pulsatile masses. [] Noncircumcised male. Testicles descended. No saddle sensation loss. Skin: Warm, dry, no erythema, no rash. [] Back: Left lumbar muscle tenderness, no CVA tenderness. Pain along left sciatic nerve into left hip. Extremities: No tenderness, no cyanosis, no clubbing, ROM intact, no edema. [] Straight leg lift on left exacerbates his pain. No cording noted. Neurologic: Alert and oriented X 3, moves all extremities on request, does have distal sensory, . DTRs +2 patella and brachial. Complains of burning pain along left sciatic nerve. No cording appreciated Psychologic: Affect anxious, judgement normal, mood normal. [] EKG: EKG: [] Radiology/Procedures: Radiology/Procedures: [] Heart Score: Risk Factors: Risk Factors: DM, Current or recent (<one month) smoker, HTN, HLP, family history of CAD, obesity. Risk Scores: Score 0 - 3: 2.5% MACE over next 6 weeks - Discharge Home Score 4 - 6: 20.3% MACE over next 6 weeks - Admit for Clinical Observation Score 7 - 10: 72.7% MACE over next 6 weeks - Early Invasive Strategies Course & Med Decision Making: Course & Med Decision Making Pertinent Labs and Imaging studies reviewed. (See chart for details) Recommend patient continue meds as previous prescribed. Use ice packs as needed. Did add a Depo-Medrol shot of 40 mg and a IM injection of Toradol.60. Recommend patient keep follow-up with his primary care Abiel or Ekaterina Lima. Would also recommend a consult with neurosurgery or orthopedic surgery for evaluation of his discs disease found on MRI at . Could try Vicoprofen for marked pain if Tylenol and ibuprofen does not adequately relieve his pain. Recommended physical therapy and possible localized steroid injections. Impression: 1. Hx. Disc injury lumbar 2. Sciatica left [] Dragon Disclaimer: Dragon Disclaimer: This electronic medical record was generated, in whole or in part, using a voice recognition dictation system. Departure Departure: Referrals: PCP,NO (PCP) Scripts Hydrocodone/Ibuprofen (HYDROCODONE-IBUPROFEN 7.5-200 ) 1 Each Tablet 1 TAB PO PRN Q6HRS PRN for PAIN, #30 TAB 0 Refills Prov: EDWIN MULTANI MD 04/14/20 Janeth Disclaimer This chart was dictated in whole or in part using Voice Recognition software in a busy, high-work load, and often noisy Emergency Department environment. It may contain unintended and wholly unrecognized errors or omissions. EDWIN MULTANI MD Apr 14, 2020 00:13
[2020-04-14 00:15] VITALS: BP 123/76
[2020-04-14] MEDS ORDERED: methylPREDNISolone ACETATE 40 MG/ML VIAL. IM ONE (01:00)
[2020-04-14] MEDS ORDERED: ORPHENADRINE CITRATE 60 MG/2 ML VIAL. IM ONE (01:00)
[2020-04-14] MEDS ORDERED: KETOROLAC 60 MG/2 ML VIAL. IM ONE (01:00)
[2020-04-14] MEDS ORDERED: HYDR-1179 PO (01:05)
== END 2020-04-14 01:35 | disposition home or self-care (01) ==
LOC: ER 23:55
DX: M54.42 Lumbago with sciatica, left side (principal); F17.200 Nicotine dependence, unspecified, uncomplicated; F12.10 Cannabis abuse, uncomplicated; Z88.5 Allergy status to narcotic agent
CPT/HCPCS: 96372; 99284; J1030; J1885; J2360

== ENCOUNTER 2020-07-06 19:11 | Emergency (ER) | payer SELFPAY ==
[~2020-07-06] VITALS: Ht 185.4 cm; Wt 84.0 kg
[2020-07-06 19:11] VITALS: BP 138/79
[~2020-07-06 19:11] MED LIST changes: +HYDR-1179 PO
--- NOTE | 2020-07-06 19:29 | RAD ---
XR CHEST 1V 07/06/2020 7:20 PM INDICATION: Chest pain COMPARISON: 01/11/2020 TECHNIQUE: Portable frontal view of the chest is provided. FINDINGS: The cardiomediastinal silhouette is within normal limits. Lungs are clear. There are no significant pleural effusions. There is no pulmonary vascular congestion. No pneumothora x. No suspicious osseous abnormality. IMPRESSION: There is no acute cardiopulmonary process. Electronically signed by: Dorene Leo MD (07/06/2020 7:27 PM) [facility]ANC[facility]
--- NOTE | 2020-07-06 19:32 | PHYS DOC ---
Past History Past Medical History: Angina, Arthritis, Other Additional Past Medical Histor: low back pain-radiates from lt groin to his toes-feels numb/tingling Past Surgical History: Other Additional Past Surgical Histo: VASECTOMY;reconstructed lt side of face; lipoma from lt shoulder Smoking: Non-smoker Alcohol Use: Occasionally Drug Use: None General Adult EDM: Chief Complaint: CHEST WALL PAIN HPI: HPI: See Nicholas chart for details. Patient is a 34 year old male who presents with chest wall pain. Review of Systems: Review of Systems: Constitutional: Denies fever or chills Eyes: Denies change in visual acuity HENT: Denies nasal congestion or sore throat Respiratory: Denies cough or shortness of breath Cardiovascular: Complaints of chest wall pain GI: Denies abdominal pain, nausea, vomiting, bloody stools or diarrhea : Denies dysuria Musculoskeletal: Denies back pain or joint pain Integument: Denies rash Neurologic: Denies headache, focal weakness or sensory changes Endocrine: Denies polyuria or polydipsia Lymphatic: Denies swollen glands Psychiatric: Denies depression or anxiety Allergies: Allergies: Allergies Coded Allergies Type Severity Reaction Last Updated Verified hydromorphone Allergy Unknown ITCHY/RASH 10/24/19 Yes Physical Exam: PE: See Nicholas chart for details. EKG: EKG: [] Radiology/Procedures: Radiology/Procedures: [][address] [address] IMAGING REPORT Signed PATIENT: SHIRA MATTA LACCOUNT: [id number] : 1985 LOCATION: ER AGE: 34 SEX: M EXAM STATUS: REG ER ORD. PHYSICIAN: NEYMAR NICHOLAS APRN REASON: chest pain PROCEDURE: CHEST AP ONLY XR CHEST 1V 07/06/2020 7:20 PM INDICATION: Chest pain COMPARISON: 01/11/2020 TECHNIQUE: Portable frontal view of the chest is provided. FINDINGS: The cardiomediastinal silhouette is within normal limits. Lungs are clear. There are no significant pleural effusions. There is no pulmonary vascular congestion. No pneumothorax. No suspicious osseous abnormality. IMPRESSION: There is no acute cardiopulmonary process. Electronically signed by: Margaret Parisi MD (07/06/2020 7:27 PM) [facility] DICTATED AND SIGNED BY: MARGARET PARISI MD DATE: 07/06/201926 CC: EMERGENCY,DEPARTMENT; NEYMAR NICHOLAS APRN; PCP,NO ~MTH0 0 Heart Score: C/O Chest Pain: N/A Risk Factors: Risk Factors: DM, Current or recent (<one month) smoker, HTN, HLP, family hist ory of CAD, obesity. Risk Scores: Score 0 - 3: 2.5% MACE over next 6 weeks - Discharge Home Score 4 - 6: 20.3% MACE over next 6 weeks - Admit for Clinical Observation Score 7 - 10: 72.7% MACE over next 6 weeks - Early Invasive Strategies Course & Med Decision Making: Course & Med Decision Making Pertinent Labs and Imaging studies reviewed. (See chart for details) See Cristopher chart for details. Impression: 1. Chest Wall pain [] Dragon Disclaimer: Dragon Disclaimer: This electronic medical record was generated, in whole or in part, using a voice recognition dictation system. Departure Departure: Referrals: PCP,NO (PCP) Scripts Cyclobenzaprine Hcl (CYCLOBENZAPRINE HCL) 10 Mg Tablet 1 TAB PO TID PRN PRN for PAIN, #12 TAB Prov: NEYMAR NICHOLAS APRN 07/06/20 EDWIN MULTANI MD Jul 06, 2020 19:32
--- NOTE | 2020-07-06 19:37 | PHYS DOC ---
Past History Past Medical History: Angina, Arthritis, Other Additional Past Medical Histor: low back pain-radiates from lt groin to his toes-feels numb/tingling (NEYMAR SILVA APRN) Past Surgical History: Other Additional Past Surgical Histo: VASECTOMY;reconstructed lt side of face; lipoma from lt shoulder (NEYMAR SILVA APRN) Smoking: Non-smoker Alcohol Use: Occasionally Drug Use: None (NEYMAR SILVA APRN) General Adult HPI: HPI: Patient is a 34-year-old male who presents with left-sided chest pain. Patient states that he stretched out both of his arms and he heard a pop sound and started having pain on the left side. Patient denies taking anything for pain prior to arrival. Denies shortness of breath or dizziness. Patient has history of anxiety. (NEYMAR SILVA APRN) Review of Systems: Review of Systems: Constitutional: Denies fever or chills Eyes: Denies change in visual acuity HENT: Denies nasal congestion or sore throat Respiratory: Denies cough or shortness of breath Cardiovascular: Reports left-sided chest wall pain or edema GI: Denies abdominal pain, nausea, vomiting, bloody stools or diarrhea : Denies dysuria Musculoskeletal: Left-sided chest wall pain Integument: Denies rash Neurologic: Denies headache, focal weakness or sensory changes Endocrine: Denies polyuria or polydipsia Lymphatic: Denies swollen glands Psychiatric: Denies depression or anxiety (NEYMAR SILVA APRN) Allergies: Allergies: Allergies Coded Allergies Type Severity Reaction Last Updated Verified hydromorphone Allergy Unknown ITCHY/RASH 10/24/19 Yes (NEYMAR SILVA APRN) Physical Exam: PE: Constitutional: Well developed, well nourished, no acute distress, non-toxic appearance. [] HENT: Normocephalic, atraumatic, bilateral external ears normal, oropharynx moist, no oral exudates, nose normal. [] Eyes: PERRLA, EOMI, conjunctiva normal, no discharge. [] Neck: Normal range of motion, no tenderness, supple, no stridor. [] Cardiovascular:Heart rate regular rhythm, no murmur [] Lungs & Thorax: Bilateral breath sounds clear to auscultation [] Abdomen: Bowel sounds normal, soft, no tenderness, no masses, no pulsatile masses. [] Skin: Warm, dry, no erythema, no rash. [] Back: No tenderness, no CVA tenderness. [] Extremities: No tenderness, no cyanosis, no clubbing, ROM intact, no edema. [] Neurologic: Alert and oriented X 3, normal motor function, normal sensory function, no focal deficits noted. [] Psychologic: Affect normal, judgement normal, mood normal. [] (NEYMAR SILVA APRN) EKG: EKG: [] (NEYMAR SILVA APRN) Radiology/Procedures: Radiology/Procedures: []XR CHEST 1V 07/06/2020 7:20 PM INDICATION: Chest pain COMPARISON: 01/11/2020 TECHNIQUE: Portable frontal view of the chest is provided. FINDINGS: The cardiomediastinal silhouette is within normal limits. Lungs are clear. There are no significant pleural effusions. There is no pulmonary vascular congestion. No pneumothorax. No suspicious osseous abnormality. IMPRESSION: There is no acute cardiopulmonary process. Electronically signed by: Dorene Leo MD (07/06/2020 7:27 PM) [facility] (NEYMAR SILVA APRN) Heart Score: C/O Chest Pain: N/A Risk Factors: Risk Factors: DM, Current or recent (<one month) smoker, HTN, HLP, family history of CAD, obesity. Risk Scores: Score 0 - 3: 2.5% MACE over next 6 weeks - Discharge Home Score 4 - 6: 20.3% MACE over next 6 weeks - Admit for Clinical Observation Score 7 - 10: 72.7% MACE over next 6 weeks - Early Invasive Strategies (NEYMAR SILVA APRN) Course & Med Decision Making: Course & Med Decision Making Pertinent Labs and Imaging studies reviewed. (See chart for details) [] EKG shows normal sinus rhythm. Hydrocodone given for pain. Toradol given. Reports pain has resolved. Sending patient home with Flexeril. Patient to take ibuprofen at home for pain. Patient is hemodynamically stable. (NEYMAR SILVA APRN) Dragon Disclaimer: Dragon Disclaimer: This electronic medical record was generated, in whole or in part, using a voice recognition dictation system. (NEYMAR SILVA APRN) Departure Departure: Impression: Primary Impression: Chest wall pain, chronic Disposition: 01 DC HOME SELF CARE/HOMELESS Condition: STABLE Referrals: PCP,NO (PCP) Patient Instructions: Chest Wall Pain, [id number] Additional Instructions: EMERGENCY DEPARTMENT GENERAL DISCHARGE INSTRUCTIONS Thank you for coming to [facility] (ED) today and trusting us with you care. We trust that you had a positivie experience in our Emergency Department. If you wish to speak to the department management, you may call the director at [phone]. YOUR FOLLOW UP INSTRUCTIONS ARE FOLLOWS: 1. Do you have a private Doctor? If you do not have a private doctor, please ask for a resource list of physicians or clinics that may be able to assist you with follow up care. 2. The Emergency Physician has interpreted your x-rays. The X-Ray specialist will also review them. If there is a change in the findings, you will be notified in 48 hours when at all possible. 3. A lab test or culture has been done, your results will be reviewed and you will be notified if you need a change in treatment. ADDITIONAL INSTRUCTIONS AND INFORMATION: 1. Your care today has been supervised by a physician who is specially trained in emergency care. Many problems require more than one evaluation for a complete diagnosis and treatment. We recommend that you schedule your follow up appointment as recommended to ensure complete treatment of you illness or injury. If you are unable to obtain follow up care and continue to have a problem, or if your condition worsens, we recommend that you return to the ED. 2. We are not able to safely determine your condition over the phone nor are we able to give sound medical advice over the phone. For these safety reasons, if you call for medical advice we will ask you to come to the ED for further evaluation. 3. If you have any questions regarding these discharge instructions please call the ED at [phone]. SAFETY INFORMATION: In the interest of safety, wellness, and injury prevention; we encourage you to wear your sealbelt, if you smoke; quite smoking, and we encourage family to use a protective helmet for bicycling and other sporting events that present an increased risk for head injury. IF YOUR SYMPTOMS WORSEN OR NEW SYMPTOMS DEVELOP, OR YOU HAVE CONCERNS ABOUT YOUR CONDITION; OR IF YOUR CONDITION WORSENS WHILE YOU ARE WAITING FOR YOUR FOLLOW UP APPOINTMENT; EITHER CONTACT YOUR PRIMARY CARE DOCTOR, THE PHYSICIAN WHOSE NAME AND NUMBER YOU WERE GIVEN, OR RETURN TO THE ED IMMEDIATELY. Scripts Cyclobenzaprine Hcl (CYCLOBENZAPRINE HCL) 10 Mg Tablet 1 TAB PO TID PRN PRN for PAIN, #12 TAB Prov: NEYMAR SILVA APRN 07/06/20 Attending Signature Attending Signature I have participated in the care of this patient and I have reviewed and agree with all pertinent clinical information above including history, exam, and recommendations. (EDWIN MULTANI MD) Attending Signature Attending Signature I have participated in the care of this patient and I have reviewed and agree with all pertinent clinical information above including history, exam, and recommendations. (EDWIN MULTANI MD) NEYMAR SILVA APRN Jul 06, 2020 19:37 EDWIN MULTANI MD Jul 07, 2020 05:40
--- NOTE | 2020-07-06 19:40 | EKG ---
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
[2020-07-06] MEDS ORDERED: HYDROcodone/APAP 5/325MG 1 TAB TABLET PO ONE (19:45)
[2020-07-06] MEDS ORDERED: KETOROLAC 60 MG/2 ML VIAL. IM ONE ×3 (20:08→20:15)
[2020-07-06] MEDS ORDERED: CYCL-331 PO (20:09)
== END 2020-07-06 21:07 | disposition home or self-care (01) ==
LOC: ER 19:11
DX: G89.29 Other chronic pain (principal); R07.89 Other chest pain; M19.90 Unspecified osteoarthritis, unspecified site; I20.9 Angina pectoris, unspecified; Z98.890 Other specified postprocedural states; Z90.89 Acquired absence of other organs; Z88.5 Allergy status to narcotic agent
CPT/HCPCS: 71045; 93005; 96372; 99283; J1885

== ENCOUNTER 2020-07-25 16:06 | Emergency (ER) | payer SELFPAY ==
[~2020-07-25] VITALS: Ht 185.4 cm; Wt 84.0 kg
[~2020-07-25 16:06] MED LIST changes: +CYCL-331 PO
[2020-07-25] MEDS ORDERED: IV NORMAL SALINE 1,000ML 1,000 ML IV SCH (16:30)
[2020-07-25] MEDS ORDERED: ASPIRIN CHEWABLE 81 MG TABLET. PO ONE (16:30)
--- NOTE | 2020-07-25 16:43 | PHYS DOC ---
Past History Past Medical History: Angina, Arthritis, Other Additional Past Medical Histor: low back pain-radiates from lt groin to his toes-feels numb/tingling (NEYMAR SILVA APRN) Past Surgical History: Other Additional Past Surgical Histo: VASECTOMY;reconstructed lt side of face; lipoma from lt shoulder (NEYMAR SILVA APRN) Smoking: Non-smoker Alcohol Use: Occasionally Drug Use: None (NEYMAR SILVA APRN) General Adult EDM: Chief Complaint: CHEST PAIN HPI: HPI: 34-year-old male presents with left-sided chest pain for 2 weeks. 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 Patient was seen here 2 weeks ago for the same complaint but states that pain has gotten worse. Pain is worse with taking deep breaths and movement. (NEYMAR SILVA APRN) Review of Systems: Review of Systems: Constitutional: Denies fever or chills Eyes: Denies change in visual acuity HENT: Denies nasal congestion or sore throat Respiratory: Denies cough, reports pain with a deep breath Cardiovascular: Left-sided chest pain worse with movement GI: Denies abdominal pain, nausea, vomiting, bloody stools or diarrhea : Denies dysuria Musculoskeletal: Denies back pain or joint pain Integument: Denies rash Neurologic: Denies headache, focal weakness or sensory changes Endocrine: Denies polyuria or polydipsia Lymphatic: Denies swollen glands Psychiatric: Denies depression or anxiety (ENYMAR SILVA APRN) Current Medications: Current Meds: Current Medications Medications (Trade) Dose Ordered Sig/Enrique Start Time Stop Time Status Last Admin Dose Admin Aspirin (Aspirin Chewable) 324 mg 1X ONCE 07/25/20 16:30 07/25/20 16:33 DC Sodium Chloride 1,000 ml @ 1,000 mls/hr Q1H 07/25/20 16:30 07/25/20 17:29 (NEYMAR SILVA APRN) Allergies: Allergies: Allergies Coded Allergies Type Severity Reaction Last Updated Verified hydromorphone Allergy Unknown ITCHY/RASH 10/24/19 Yes (NEYMAR SILVA APRN) Physical Exam: PE: Constitutional: Well developed, well nourished, no acute distress, non-toxic appearance. [] HENT: Normocephalic, atraumatic, bilateral external ears normal, oropharynx moist, no oral exudates, nose normal. [] Eyes: PERRLA, EOMI, conjunctiva normal, no discharge. [] Neck: Normal range of motion, no tenderness, supple, no stridor. [] Cardiovascular:Heart rate regular rhythm, no murmur [] Lungs & Thorax: Bilateral breath sounds clear to auscultation [] Abdomen: Bowel sounds normal, soft, no tenderness, no masses, no pulsatile masses. [] Skin: Warm, dry, no erythema, no rash. [] Back: No tenderness, no CVA tenderness. [] Extremities: No tenderness, no cyanosis, no clubbing, ROM intact, no edema. [] Neurologic: Alert and oriented X 3, normal motor function, normal sensory function, no focal deficits noted. [] Psychologic: Affect normal, judgement normal, mood normal. [] (NEYMAR SILVA APRN) EKG: EKG: [] EKG shows sinus rhythm. Heart rate 75 bpm. (NEYMAR SILVA APRN) Radiology/Procedures: Radiology/Procedures: []Exam Date: 07/25/2020 4:41 PM XR CHEST 1V Indication: Reason: CHEST PAIN / Spl. Instructions: / History: Comparison: July 06, 2020 FINDINGS/ IMPRESSION: There is a 10 mm nodular opacity in the right midlung field which is likely artifactual since it was not present on the prior exam from July 06, 2020. Consider short interval follow-up chest radiographs to document resolution. If this nodule persists on follow-up radiographs, follow-up nonemergent chest CT could be performed. The cardiac silhouette and pulmonary vasculature are within normal limits. There is no focal consolidation, pleural effusion or pneumothorax. Electronically signed by: Dustin Wilkinson MD (07/25/2020 5:01 PM) [facility] Exam Date: 07/25/2020 5:17 PM CTA CHEST Indication: Reason: chest pain, sob / Spl. Instructions: / History: TECHNIQUE: CT angiogram of the chest was performed following the administration of nonionic intravenous contrast for evaluation of pulmonary embolus. 3D MIPs were created and reviewed on an independent workstation to assist in diagnosis and clinical management. One or more of the following dose reduction techniques were utilized: *Automated exposure control (AEC) *Adjustment of mA and/or kV according to patient size *Use of iterative reconstruction technique *CT scan done according to ALARA, or ALARA/IMAGE GENTLY FINDINGS: There is adequate opacification of the pulmonary arteries. No central intravascular filling defects are appreciated. There is no evidence for central pulmonary embolus. The aorta is normal in caliber without evidence for dissection. 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 The common carotid arteries arise from a common trunk. The heart is normal in size without pericardial effusion. The visualized thyroid gland is within normal limits. No lymphadenopathy is seen. There are focal patchy groundglass opacities/infiltrates in the right upper lobe and middle lobe near the minor fissure. Similar patchy groundglass infiltrates are seen in the right lung base posteriorly. The central airways are patent. There is no pleural effusion or pneumothorax. Images of the upper abdomen demonstrate calcified granulomas in the spleen. Osseous structures are intact. IMPRESSION: No evidence for central pulmonary embolus. Patchy groundglass opacities/infiltrates in the right lung as described, likely infectious or inflammatory. Follow-up chest CT in 3-6 months is recommended to document stability and to exclude neoplastic considerations. Aberrant retroesophageal right subclavian artery noted. Common trunk for the common carotid arteries. Electronically signed by: Dustin Wilkinson MD (07/25/2020 5:51 PM) [facility] (NEYMAR SILVA APRN) Heart Score: C/O Chest Pain: No Risk Factors: Risk Factors: DM, Current or recent (<one month) smoker, HTN, HLP, family history of CAD, obesity. Risk Scores: Score 0 - 3: 2.5% MACE over next 6 weeks - Discharge Home Score 4 - 6: 20.3% MACE over next 6 weeks - Admit for Clinical Observation Score 7 - 10: 72.7% MACE over next 6 weeks - Early Invasive Strategies (NEYMAR SILVA APRN) Course & Med Decision Making: Course & Med Decision Making Pertinent Labs and Imaging studies reviewed. (See chart for details) [] CTA shows no evidence for central pulmonary embolus. Patchy groundglass opacities/infiltrates in the right lung as described, likely infectious or inflammatory. Follow-up chest CT in 3-6 months is recommended to document stability and to exclude neoplastic considerations. Lab work unremarkable. Troponin is negative. Toradol given for pain. Patient was likely has a muscle strain of his chest wall. Explained patients can take some time for this to heal. If patient continues to have pain he needs to follow-up with his PCP for further evaluation. Patient is hemodynamically stable and agrees with this plan. (NEYMAR SILVA APRN) Course & Med Decision Making Did not see or evaluate patient. Agree with HAND PLUG SHAPER's work-up and disposition. (ANNA PHAN MD) Dragon Disclaimer: Dragon Disclaimer: This electronic medical record was generated, in whole or in part, using a voice recognition dictation system. (NEYMAR SILVA APRN) Departure Departure: Impression: Primary Impression: Chest wall muscle strain Qualified Codes: S29.011A - Strain of muscle and tendon of front wall of thorax, initial encounter Disposition: 01 DC HOME SELF CARE/HOMELESS Condition: STABLE Referrals: PCP,NO (PCP) Patient Instructions: Chest Wall Pain, [id number] Additional Instructions: You're seen in the emergency room for left-sided chest wall pain. All of your lab work was unremarkable. CT of your chest was negative for any acute problems. Please follow-up with your PCP for further management. You can take ibuprofen at home for discomfort. Please return emergency room with worsening symptoms or concerns. EMERGENCY DEPARTMENT GENERAL DISCHARGE INSTRUCTIONS Thank you for coming to [facility] ([facility]) today and trusting us with you care. We trust that you had a positivie experience in our Emergency Department. If you wish to speak to the department management, you may call the director at [phone]. YOUR FOLLOW UP INSTRUCTIONS ARE FOLLOWS: 1. Do you have a private Doctor? If you do not have a private doctor, please ask for a resource list of physicians or clinics that may be able to assist you with follow up care. 2. The Emergency Physician has interpreted your x-rays. The X-Ray specialist will also review them. If there is a change in the findings, you will be notified in 48 hours when at all possible. 3. A lab test or culture has been done, your results will be reviewed and you will be notified if you need a change in treatment. ADDITIONAL INSTRUCTIONS AND INFORMATION: 1. Your care today has been supervised by a physician who is specially trained in emergency care. Many problems require more than one evaluation for a complete diagnosis and treatment. We recommend that you schedule your follow up appointment as recommended to ensure complete treatment of you illness or injury. If you are unable to obtain follow up care and continue to have a problem, or if your condition worsens, we recommend that you return to the ED. 2. We are not able to safely determine your condition over the phone nor are we able to give sound medical advice over the phone. For these safety reasons, if you call for medical advice we will ask you to come to the ED for further evaluation. 3. If you have any questions regarding these discharge instructions please call the ED at [phone]. SAFETY INFORMATION: In the interest of safety, wellness, and injury prevention; we encourage you to wear your sealbelt, if you smoke; quite smoking, and we encourage family to use a protective helmet for bicycling and other sporting events that present an increased risk for head injury. IF YOUR SYMPTOMS WORSEN OR NEW SYMPTOMS DEVELOP, OR YOU HAVE CONCERNS ABOUT YOUR CONDITION; OR IF YOUR CONDITION WORSENS WHILE YOU ARE WAITING FOR YOUR FOLLOW UP APPOINTMENT; EITHER CONTACT YOUR PRIMARY CARE DOCTOR, THE PHYSICIAN WHOSE NAME AND NUMBER YOU WERE GIVEN, OR RETURN TO THE ED IMMEDIATELY. Scripts Hydrocodone Bit/Acetaminophen (HYDROCODONE-APAP 5-325 ) 1 Each Tablet 1 TAB PO PRN Q6HRS PRN for PAIN for 3 Days, #12 TAB 0 Refills Prov: NEYMAR SILVA APRN 07/25/20 NEYMAR SILVA APRN Jul 25, 2020 16:42 ANNA PHAN MD Jul 26, 2020 18:52
--- NOTE | 2020-07-25 16:44 | EKG ---
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
[2020-07-25 16:49] LABS: BASO % 0 % (0-3); CALCIUM 9.4 mg/dL (8.5-10.1); CREATININE 1.1 mg/dL (0.7-1.3); EOS # 0.1 x10^3/uL (0.0-0.7); EOS % 1 % (0-3); GFR 75.7; HEMATOCRIT 44.3 % (39.0-53.0); LYMPH # 1.2 x10^3/uL (1.0-4.8); LYMPH % 14 % (24-48); MEAN CORPUSCULAR HEMOGLOBIN 30 pg (25-35); MEAN CORPUSCULAR HGB CONC 34 g/dL (31-37); MEAN CORPUSCULAR VOLUME 88 fL (79-100); MONO # 0.7 x10^3/uL (0.0-1.1); MONO % 8 % (0-9); NEUT # 6.8 x10^3uL (1.8-7.7); NEUT % 77 % (31-73); PLATELET COUNT 232 x10^3/uL (140-400); POTASSIUM 4.3 mmol/L (3.5-5.1); RED BLOOD COUNT 5.02 x10^6/uL (4.30-5.70); RED CELL DISTRIBUTION WIDTH 13.4 % (11.5-14.5); WHITE BLOOD COUNT 8.8 x10^3/uL (4.0-11.0)
[2020-07-25 17:02] LABS: ALBUMIN 3.9 g/dL (3.4-5.0); ALBUMIN/GLOBULIN RATIO 0.9 (1.0-1.7); TOTAL PROTEIN 8.1 g/dL (6.4-8.2)
--- NOTE | 2020-07-25 17:04 | RAD ---
Exam Date: 07/25/2020 4:41 PM XR CHEST 1V Indication: Reason: CHEST PAIN / Spl. Instructions: / History: Comparison: July 06, 2020 FINDINGS/ IMPRESSION: There is a 10 mm nodular opacity in the right midlung field which is likely artifactual since it was not present on the prior exam from July 06, 2020. Consider short interval follow-up chest radiographs to document resolution. If this nodule persists on follow-up radiographs, follow-up nonemergent ches t CT could be performed. The cardiac silhouette and pulmonary vasculature are within normal limits. There is no focal consolidation, pleural effusion or pneumothorax. Electronically signed by: Dustin Wilkinson MD (07/25/2020 5:01 PM) [place]
[2020-07-25] MEDS ORDERED: CONTRAST GIVEN. MC PRN (17:30)
[2020-07-25] MEDS ORDERED: IOHEXOL 350 MG/ML 100 ML VIAL. IV ONE (17:30)
--- NOTE | 2020-07-25 17:53 | RAD ---
Exam Date: 07/25/2020 5:17 PM CTA CHEST Indication: Reason: chest pain, sob / Spl. Instructions: / History: TECHNIQUE: CT angiogram of the chest was performed following the administration of nonionic intrave nous contrast for evaluation of pulmonary embolus. 3D MIPs were created and reviewed on an evOLED workstation to assist in diagnosis and clinical management. One or more of the following dose red uction techniques were utilized: *Automated exposure control (AEC) *Adjustment of mA and/or kV according to patient size *Use of iterative reconstruction technique *CT scan done according to ALARA, or ALARA/IMAGE GENTLY FINDINGS: There is adequate opacification of the pulmonary arteries. No central intravascular filling defects are appreciated. There is no evidence for central pulmonary embolus. The aorta is normal in caliber without evidence for dissection. 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 The common carotid arteries arise from a common trunk. The heart is normal in size without pericardial effusion. The visualized thyroid gland is within normal limits. No lymphadenopathy is seen. There are focal patchy groundglass opacities/infiltrates in the right upper lobe and middle lobe near the minor fissure. Similar patchy groundglass infiltrates are seen in the right lung base posteriorl y. The central airways are patent. There is no pleural effusion or pneumothorax. Images of the upper abdomen demonstrate calcified granulomas in the spleen. Osseous structures are in tact. IMPRESSION: No evidence for central pulmonary embolus. Patchy groundglass opacities/infiltrates in the right lung as described, likely infectious or inflamm atory. Follow-up chest CT in 3-6 months is recommended to document stability and to exclude neoplasti c considerations. Aberrant retroesophageal right subclavian artery noted. Common trunk for the common carotid arteries. Electronically signed by: Dustin Wilkinson MD (07/25/2020 5:51 PM) [facility]
[2020-07-25 18:12] VITALS: BP 121/80
[2020-07-25] MEDS ORDERED: KETOROLAC 15 MG/ML VIAL. IVP ONE (19:15)
[2020-07-25] MEDS ORDERED: HYDR-2155 PO (19:29)
== END 2020-07-25 19:45 | disposition home or self-care (01) ==
LOC: ER 16:06
DX: S29.011A Strain of muscle and tendon of front wall of thorax, initial encounter (principal); M19.90 Unspecified osteoarthritis, unspecified site; Z88.5 Allergy status to narcotic agent; X50.9XXA Other and unspecified overexertion or strenuous movements or postures, initial encounter; Y93.89 Activity, other specified; Y92.89 Other specified places as the place of occurrence of the external cause; Y99.8 Other external cause status
CPT/HCPCS: 36415; 71045; 71275; 80053; 83880; 84484; 85025; 93005; 96361; 96374; 99285; J1885; J7030; Q9967

== ENCOUNTER 2020-08-05 17:21 | Emergency (ER) | payer SELFPAY ==
[~2020-08-05] VITALS: Ht 177.8 cm; Wt 72.7 kg
[~2020-08-05 17:21] MED LIST changes: +HYDR-2155 PO
--- NOTE | 2020-08-05 18:14 | PHYS DOC ---
Past History Past Medical History: Angina, Arthritis, Other Additional Past Medical Histor: low back pain-radiates from lt groin to his toes-feels numb/tingling Past Surgical History: Other Additional Past Surgical Histo: VASECTOMY;reconstructed lt side of face; lipoma from lt shoulder Smoking: Non-smoker Additional Smoking Information: uses chewing tobacco Alcohol Use: Occasionally Drug Use: None General Adult EDM: Chief Complaint: LOWER BACK PAIN OR INJURY HPI: HPI: Patient is a 34-year-old male who presents with neck pain and lower back pain after a fall down 6 stairs today. Patient is reporting he is having muscle spasms in his lower back. Patient denies hitting his head or loss of consciousness. Patient has a history of chronic back pain. Pain is worse with movement. Denies taking anything prior to arrival. Denies urinary retention or loss of bowel. Review of Systems: Review of Systems: Constitutional: Denies fever or chills Eyes: Denies change in visual acuity HENT: Denies nasal congestion or sore throat Respiratory: Denies cough or shortness of breath Cardiovascular: Denies chest pain or edema GI: Denies abdominal pain, nausea, vomiting, bloody stools or diarrhea : Denies dysuria Musculoskeletal: Reports neck, lower back pain, denies joint pain Integument: Denies rash Neurologic: Denies headache, focal weakness or sensory changes Endocrine: Denies polyuria or polydipsia Lymphatic: Denies swollen glands Psychiatric: Denies depression or anxiety Allergies: Allergies: Allergies Coded Allergies Type Severity Reaction Last Updated Verified hydromorphone Allergy Unknown ITCHY/RASH 10/24/19 Yes Physical Exam: PE: Constitutional: Well developed, well nourished, no acute distress, non-toxic appearance. [] HENT: Normocephalic, atraumatic, bilateral external ears normal, oropharynx moist, no oral exudates, nose normal. [] Eyes: PERRLA, EOMI, conjunctiva normal, no discharge. [] Neck: Normal range of motion, no tenderness, supple, no stridor. [] Cardiovascular:Heart rate regular rhythm, no murmur [] Lungs & Thorax: Bilateral breath sounds clear to auscultation [] Abdomen: Bowel sounds normal, soft, no tenderness, no masses, no pulsatile masses. [] Skin: Warm, dry, no erythema, no rash. [] Back: Lower back tenderness, no CVA tenderness. [] Extremities: No tenderness, no cyanosis, no clubbing, ROM intact, no edema. [] Neurologic: Alert and oriented X 3, normal motor function, normal sensory function, no focal deficits noted. [] Psychologic: Affect normal, judgement normal, mood normal. [] Current Patient Data: Vital Signs: Vital Signs Date Time Temp Pulse Resp B/P (MAP) Pulse Ox O2 Delivery O2 Flow Rate FiO2 08/05/20 17:35 98.2 91 18 112/73 (86) 97 Room Air EKG: EKG: [] Radiology/Procedures: Radiology/Procedures: []Exam: CT cervical spine, thoracic spine and lumbar spine without contrast INDICATION: Fall down 6 stairs TECHNIQUE: Sequential axial images through the cervical spine, thoracic spine and lumbar spine obtained without IV contrast. Sagittal and coronal reformatted images were reconstructed from the axial data and reviewed. Comparisons: None FINDINGS: Cervical spine: Straightening of the cervical spine which may positional. Vertebral body heights are well-maintained. Fracture to the cervical spine is not identified. No significant spondylotic change in cervical spine. Visualized paraspinal soft tissues are unremarkable. Thoracic spine: Vertebral body heights and alignment are well-maintained. Fracture through the cervical spine is not identified. No significant spondylotic change in the thoracic spine. There are a few scattered groundglass nodules measuring up to 5 mm noted in the right lower lobe. Lumbar spine: Vertebral body heights and alignment are well-maintained. Fracture through the lumbar spine is not identified. No significant spondylotic change in the lumbar spine. Visualized paraspinal soft tissues are unremarkable. IMPRESSION: 1. No acute traumatic injury identified within the cervical spine, thoracic spine or lumbar spine. 2. Few scattered glass nodules in the right lower lobe, nonspecific may be infectious or inflammatory in etiology. Correlate with patient's risk factors. Exposure: One or more of the following in the visualized dose reduction techniques were utilized for this examination: 1. Automated exposure control 2. Adjustment of the MA and/or KV according to patient size 3. Use of iterative of reconstructive technique Electronically signed by: Zee Guerrero MD (08/05/2020 6:59 PM) [facility] DICTATED AND SIGNED BY: ZEE GUERRERO MD DATE: 08/05/20 875 CC: NEYMAR SILVA APRN; PCP,NO ~MTH0 0 Heart Score: C/O Chest Pain: No Risk Factors: Risk Factors: DM, Current or recent (<one month) smoker, HTN, HLP, family his tory of CAD, obesity. Risk Scores: Score 0 - 3: 2.5% MACE over next 6 weeks - Discharge Home Score 4 - 6: 20.3% MACE over next 6 weeks - Admit for Clinical Observation Score 7 - 10: 72.7% MACE over next 6 weeks - Early Invasive Strategies Course & Med Decision Making: Course & Med Decision Making Pertinent Labs and Imaging studies reviewed. (See chart for details) [] Patient fell today down 6 stairs, when he landed he hit his lower back. Patient is reporting neck pain and lower back pain. Patient states that he is having spasms in his lower back and pain is worse with movement. Patient denies hitting his head or losing consciousness. CT cervical spine, thoracic, lumbar ordered to rule out abnormalities. Patient states he does have a history of chronic back pain and bulging disks. Patient given Flexeril and Toradol for discomfort. No signs of cauda equina syndrome. He of cervical spine, lumbar, thoracic was negative for any acute abnormalities. Patient given a hydrocodone for pain. Sending patient home with instructions to take ibuprofen and Tylenol for discomfort. Patient given physician list for PCP follow-up. Janeth Disclaimer: Janeth Disclaimer: This electronic medical record was generated, in whole or in part, using a voice recognition dictation system. Departure Departure: Impression: Primary Impression: Back pain Qualified Codes: M54.42 - Lumbago with sciatica, left side; M54.41 - Lumbago with sciatica, right side Disposition: 02 DC/TRF OTHER SHORT TERM HOS Condition: STABLE Referrals: PCP,NO (PCP) Patient Instructions: Back Pain, Adult, [id number] Additional Instructions: EMERGENCY DEPARTMENT GENERAL DISCHARGE INSTRUCTIONS Thank you for coming to [facility] (ED) today and trusting us with you care. We trust that you had a positivie experience in our Emergency Department. If you wish to speak to the department management, you may call the director at [phone]. YOUR FOLLOW UP INSTRUCTIONS ARE FOLLOWS: 1. Do you have a private Doctor? If you do not have a private doctor, please ask for a resource list of physicians or clinics that may be able to assist you with follow up care. 2. The Emergency Physician has interpreted your x-rays. The X-Ray specialist will also review them. If there is a change in the findings, you will be notified in 48 hours when at all possible. 3. A lab test or culture has been done, your results will be reviewed and you will be notified if you need a change in treatment. ADDITIONAL INSTRUCTIONS AND INFORMATION: 1. Your care today has been supervised by a physician who is specially trained in emergency care. Many problems require more than one evaluation for a complete diagnosis and treatment. We recommend that you schedule your follow up appointment as recommended to ensure complete treatment of you illness or injury. If you are unable to obtain follow up care and continue to have a problem, or if your condition worsens, we recommend that you return to the ED. 2. We are not able to safely determine your condition over the phone nor are we able to give sound medical advice over the phone. For these safety reasons, if you call for medical advice we will ask you to come to the ED for further evaluation. 3. If you have any questions regarding these discharge instructions please call the ED at [phone]. SAFETY INFORMATION: In the interest of safety, wellness, and injury prevention; we encourage you to wear your sealbelt, if you smoke; quite smoking, and we encourage family to use a protective helmet for bicycling and other sporting events that present an increased risk for head injury. IF YOUR SYMPTOMS WORSEN OR NEW SYMPTOMS DEVELOP, OR YOU HAVE CONCERNS ABOUT YOUR CONDITION; OR IF YOUR CONDITION WORSENS WHILE YOU ARE WAITING FOR YOUR FOLLOW UP APPOINTMENT; EITHER CONTACT YOUR PRIMARY CARE DOCTOR, THE PHYSICIAN WHOSE NAME AND NUMBER YOU WERE GIVEN, OR RETURN TO THE ED IMMEDIATELY. NEYMAR SILVA APRN Aug 05, 2020 18:14
[2020-08-05] MEDS ORDERED: CYCLOBENZAPRINE 10 MG TABLET. PO ONE (18:15)
[2020-08-05] MEDS ORDERED: KETOROLAC 15 MG/ML VIAL. IM ONE (18:15)
--- NOTE | 2020-08-05 19:01 | RAD ---
Exam: CT cervical spine, thoracic spine and lumbar spine without contrast INDICATION: Fall down 6 stairs TECHNIQUE: Sequential axial images through the cervical spine, thoracic spine and lumbar spine obtain ed without IV contrast. Sagittal and coronal reformatted images were reconstructed from the axial edgar a and reviewed. Comparisons: None FINDINGS: Cervical spine: Straightening of the cervical spine which may positional. Vertebral body heights are well-maintained. Fracture to the cervical spine is not identified. No significant spondylotic change in cervical spine. Visualized paraspinal soft tissues are unremarkable. Thoracic spine: Vertebral body heights and alignment are well-maintained. Fracture through the cervical spine is not identified. No significant spondylotic change in the thoracic spine. There are a few scattered groundglass nodules measuring up to 5 mm noted in the right lower lobe. Lumbar spine: Vertebral body heights and alignment are well-maintained. Fracture through the lumbar spine is not identified. No significant spondylotic change in the lumbar spine. Visualized paraspinal soft tissues are unremarkable. IMPRESSION: 1. No acute traumatic injury identified within the cervical spine, thoracic spine or lumbar spine. 2. Few scattered glass nodules in the right lower lobe, nonspecific may be infectious or inflammator y in etiology. Correlate with patient's risk factors. Exposure: One or more of the following in the visualized dose reduction techniques were utilized for this examination: 1. Automated exposure control 2. Adjustment of the MA and/or KV according to patient size 3. Use of iterative of reconstructive technique Electronically signed by: Cassie Lopez MD (08/05/2020 6:59 PM) [facility]
[2020-08-05 19:03] VITALS: BP 115/79
[2020-08-05] MEDS ORDERED: HYDROcodone/APAP 5/325MG 1 TAB TABLET PO ONE (19:30)
== END 2020-08-05 19:41 | disposition short-term general hospital (02) ==
LOC: ER 17:21
DX: M54.42 Lumbago with sciatica, left side (principal); M54.41 Lumbago with sciatica, right side; M54.2 Cervicalgia; F17.220 Nicotine dependence, chewing tobacco, uncomplicated; M19.90 Unspecified osteoarthritis, unspecified site; Z88.5 Allergy status to narcotic agent; W10.8XXA Fall (on) (from) other stairs and steps, initial encounter; Y93.89 Activity, other specified; Y92.89 Other specified places as the place of occurrence of the external cause; Y99.8 Other external cause status
CPT/HCPCS: 72125; 72128; 72131; 96372; 99285; J1885

== ENCOUNTER 2020-11-19 18:20 | Emergency (ER) | payer SELFPAY ==
[~2020-11-19] VITALS: Ht 177.8 cm; Wt 72.7 kg
--- NOTE | 2020-11-19 20:10 | PHYS DOC ---
Past History Past Medical History: Angina, Arthritis, Other Additional Past Medical Histor: low back pain-radiates from lt groin to his toes-feels numb/tingling Past Surgical History: Other Additional Past Surgical Histo: VASECTOMY;reconstructed lt side of face; lipoma from lt shoulder Smoking: Non-smoker Alcohol Use: Occasionally Drug Use: None General Adult EDM: Chief Complaint: BACK PAIN - NO INJURY HPI: HPI: Patient is a 34-year-old male who presents to the ER today for lower back pain that radiates to his left hip. Patient has chronic back pain and denies any acute injuries. Patient reports that he was sent here by his primary care prov ider because they could not prescribe him any pain medication. Patient is out of his tramadol prescription. He has been taking 800 mg of ibuprofen with mild relief in his pain. Patient rates his pain 9 out of 10. Pain is worse with movement. Patient denies any numbness or tingling in his lower extremities, loss of bowel or bladder, saddle anesthesias. Patient has questionable tactile me several times regarding what type of pain medication he will be receiving and is requesting tramadol to go home with. Patient reports that he has Valium at home. Review of Systems: Review of Systems: 14 body systems of the review of systems have been reviewed. See HPI for pertinent positive and negative responses, otherwise all other systems are negative, nonpertinent or noncontributory Allergies: Allergies: Allergies Coded Allergies Type Severity Reaction Last Updated Verified hydromorphone Allergy Unknown ITCHY/RASH 11/19/20 Yes Physical Exam: PE: Constitutional: Well developed, well nourished, no acute distress, non-toxic appearance. [] HENT: Normocephalic, atraumatic Eyes: PERRL, conjunctiva normal, no discharge. [] Neck: Normal range of motion, no tenderness, supple, no stridor. [] Cardiovascular: Normal peripheral perfusion Lungs & Thorax: Normal work of breathing, no tachypnea Skin: Warm, dry, no erythema, no rash. [] Back: Lumbar paraspinal tenderness, positive straight leg raise Extremities: No tenderness, no cyanosis, no clubbing, ROM intact, no edema. [] Neurologic: Alert and oriented X 3, normal motor function, normal sensory function, no focal deficits noted. [] Psychologic: Affect normal, judgement normal, mood normal. [] Current Patient Data: Vital Signs: Vital Signs Date Time Temp Pulse Resp B/P (MAP) Pulse Ox O2 Delivery O2 Flow Rate FiO2 11/19/20 18:41 100.7 85 20 108/78 98 Room Air EKG: EKG: [] Radiology/Procedures: Radiology/Procedures: [] Heart Score: C/O Chest Pain: No Risk Factors: Risk Factors: DM, Current or recent (<one month) smoker, HTN, HLP, family history of CAD, obesity. Risk Scores: Score 0 - 3: 2.5% MACE over next 6 weeks - Discharge Home Score 4 - 6: 20.3% MACE over next 6 weeks - Admit for Clinical Observation Score 7 - 10: 72.7% MACE over next 6 weeks - Early Invasive Strategies Course & Med Decision Making: Course & Med Decision Making Pertinent Labs and Imaging studies reviewed. (See chart for details) Patient is a 34-year-old male being seen for chronic low back pain that radiates to his left hip. Patient usually takes ibuprofen, Valium, tramadol for this pain. He reports that his primary care provider would not give him any more tramadol and referred him to a pain management doctor. Patient denies any new injuries, loss of bowel or bladder, saddle anesthesias. Positive straight leg raise. Patient is requesting narcotic pain medication in the ER and to go home with. Patient's pain was treated in the ER. He was discharged home with pain medication and told to follow-up with his primary care provider tomorrow regarding his ER visit. I discussed with patient all findings and the need to follow-up with PCP for further evaluation and treatment or return to the ER if any new or worsening symptoms. Strict return precautions were also discussed at length. Patient voiced understanding and agreement with the plan. Patient is hemodynamically stable at the time of disposition. Dragon Disclaimer: Dragon Disclaimer: This electronic medical record was generated, in whole or in part, using a voice recognition dictation system. Departure Departure: Impression: Primary Impression: Low back pain Qualified Codes: M54.42 - Lumbago with sciatica, left side; G89.29 - Other chronic pain Disposition: HOME / SELF CARE / HOMELESS Condition: GOOD Referrals: JUAN HOYOS MD (PCP) Patient Instructions: Back Pain, Adult, Sciatica Additional Instructions: You're seen in the ER today for chronic back pain. As we discussed, there was no acute injury. You were treated in the ER with pain medication. You stated that you have ibuprofen, Valium at home. You should follow-up with your primary care provider tomorrow regarding your ER visit. If needed you will need to follow-up with the pain management doctor regarding your management of your chronic low back pain. Long-term use of opiate medications can be dangerous and addictive. Please make sure that you do not mix these medications with alcohol or any other sedating substances. Please be aware that these medications may cause sedation and do not take when you need to be alert. EMERGENCY DEPARTMENT GENERAL DISCHARGE INSTRUCTIONS Thank you for coming to [facility] (ED) today and trusting us with you care. We trust that you had a positivie experience in our Emergency Department. If you wish to speak to the department management, you may call the director at [phone]. YOUR FOLLOW UP INSTRUCTIONS ARE FOLLOWS: 1. Do you have a private Doctor? If you do not have a private doctor, please ask for a resource list of physicians or clinics that may be able to assist you with follow up care. 2. The Emergency Physician has interpreted your x-rays. The X-Ray specialist will also review them. If there is a change in the findings, you will be notified in 48 hours when at all possible. 3. A lab test or culture has been done, your results will be reviewed and you will be notified if you need a change in treatment. ADDITIONAL INSTRUCTIONS AND INFORMATION: 1. Your care today has been supervised by a physician who is specially trained in emergency care. Many problems require more than one evaluation for a complete diagnosis and treatment. We recommend that you schedule your follow up appointment as recommended to ensure complete treatment of you illness or injury. If you are unable to obtain follow up care and continue to have a problem, or if your condition worsens, we recommend that you return to the ED. 2. We are not able to safely determine your condition over the phone nor are we able to give sound medical advice over the phone. For these safety reasons, if you call for medical advice we will ask you to come to the ED for further evaluation. 3. If you have any questions regarding these discharge instructions please call the ED at [phone]. SAFETY INFORMATION: In the interest of safety, wellness, and injury prevention; we encourage you to wear your sealbelt, if you smoke; quite smoking, and we encourage family to use a protective helmet for bicycling and other sporting events that present an increased risk for head injury. IF YOUR SYMPTOMS WORSEN OR NEW SYMPTOMS DEVELOP, OR YOU HAVE CONCERNS ABOUT YOUR CONDITION; OR IF YOUR CONDITION WORSENS WHILE YOU ARE WAITING FOR YOUR FOLLOW UP APPOINTMENT; EITHER CONTACT YOUR PRIMARY CARE DOCTOR, THE PHYSICIAN WHOSE NAME AND NUMBER YOU WERE GIVEN, OR RETURN TO THE ED IMMEDIATELY. Scripts Hydrocodone Bit/Acetaminophen (HYDROCODONE-APAP 5-325 ) 1 Each Tablet 1 TAB PO PRN Q6HRS PRN for PAIN for 2 Days, #8 TAB 0 Refills Prov: CADEN AREVALO APRN 11/19/20 CADEN AREVALO APRN Nov 19, 2020 20:10
[2020-11-19] MEDS ORDERED: HYDROcodone/APAP 5/325MG 1 TAB TABLET PO ONE (20:30)
[2020-11-19] MEDS ORDERED: KETOROLAC 60 MG/2 ML VIAL. IM ONE (20:30)
[2020-11-19] MEDS ORDERED: HYDR-2155 PO (20:32)
[2020-11-19 20:58] VITALS: BP 110/79
== END 2020-11-19 20:59 | disposition home or self-care (01) ==
LOC: ER 18:20
DX: M54.42 Lumbago with sciatica, left side (principal)
CPT/HCPCS: 96372; 99283; J1885

== ENCOUNTER 2020-12-02 19:55 | Emergency (ER) | payer SELFPAY ==
[~2020-12-02] VITALS: Ht 177.8 cm; Wt 72.7 kg
[2020-12-02 19:55] VITALS: BP 116/86
[2020-12-02] MEDS ORDERED: ORPHENADRINE CITRATE 60 MG/2 ML VIAL. IM ONE (20:15)
[2020-12-02] MEDS ORDERED: KETOROLAC 60 MG/2 ML VIAL. IM ONE ×2 (20:15→20:19)
[2020-12-02] MEDS ORDERED: ORPHENADRINE CITRATE 60 MG/2 ML VIAL. ONE (20:20)
--- NOTE | 2020-12-02 20:21 | PHYS DOC ---
Past History Past Medical History: Angina, Arthritis, Other Additional Past Medical Histor: chronic back pain Past Surgical History: Other Additional Past Surgical Histo: VASECTOMY;reconstructed lt side of face; lipoma from lt shoulder Smoking: Non-smoker Alcohol Use: Rarely Drug Use: None General Adult EDM: Chief Complaint: BACK PAIN - NO INJURY HPI: HPI: Is a 34-year-old male being seen in the ER for low back pain. Patient reports that he was carrying drywall a couple of days ago when he a pop in his low back. Patient rates pain 7 out of 10. Does not radiate. He took ibuprofen and Valium prior to arrival. Patient is able to bear weight and ambulate with steady gait. Patient denies any numbness or tingling in his extremities, saddle anesthesias, loss of bowel or bladder, pain with urination. Review of Systems: Review of Systems: 14 body systems of the review of systems have been reviewed. See HPI for pertinent positive and negative responses, otherwise all other systems are negat alanis, nonpertinent or noncontributory Current Medications: Current Meds: Current Medications Medications (Trade) Dose Ordered Sig/Enrique Start Time Stop Time Status Last Admin Dose Admin Ketorolac Tromethamine (Toradol Im) 60 mg 1X ONCE 12/02/20 20:15 12/02/20 20:16 UNV Orphenadrine Citrate (Norflex) 60 mg 1X ONCE 12/02/20 20:15 12/02/20 20:16 UNV Allergies: Allergies: Allergies Coded Allergies Type Severity Reaction Last Updated Verified hydromorphone Allergy Unknown ITCHY/RASH 11/19/20 Yes Physical Exam: PE: Constitutional: Well developed, well nourished, no acute distress, non-toxic appearance. [] HENT: Normocephalic, atraumatic Eyes: PERRL, conjunctiva normal, no discharge. [] Neck: Normal range of motion, no tenderness, supple, no stridor. [] Cardiovascular: Normal peripheral perfusion Lungs & Thorax: Normal work of breathing, no tachypnea Skin: Warm, dry, no erythema, no rash. [] Back: Lumbar spinal tenderness with palpation, no crepitus palpated Extremities: No tenderness, no cyanosis, no clubbing, ROM intact, no edema. [] Neurologic: Alert and oriented X 3, normal motor function, normal sensory function, no focal deficits noted. [] Psychologic: Affect normal, judgement normal, mood normal. [] Current Patient Data: Vital Signs: Vital Signs Date Time Temp Pulse Resp B/P (MAP) Pulse Ox O2 Delivery O2 Flow Rate FiO2 12/02/20 19:55 97.7 94 18 116/86 100 Room Air EKG: EKG: [] Radiology/Procedures: Radiology/Procedures: PROCEDURE: LUMBAR SPINE 2-3V XR LUMBAR SPINE 2-3V History: Reason: INJURY 12/01, HX CHRONIC LOW BACK PAIN / Spl. Instructions: / History: Technique: 3 views lumbar spine. Comparison: November 09, 2019 Findings: Normal vertebral body height and alignment. No fracture. Mild degenerative disc changes most prominent L3-L4 and L5-S1. Impression: 1. Mild multilevel lumbar spondylosis, unchanged. Electronically signed by: Kieran Shaikh DO (12/02/2020 8:48 PM) [facility] DICTATED AND SIGNED BY: KIERAN SHAIKH DO DATE: 12/02/202041 CC: JUAN HOYOS MD; CADEN AREVALO APRN ~MTH0 0[] Heart Score: C/O Chest Pain: No Risk Factors: Risk Factors: DM, Current or recent (<one month) smoker, HTN, HLP, family history of CAD, obesity. Risk Scores: Score 0 - 3: 2.5% MACE over next 6 weeks - Discharge Home Score 4 - 6: 20.3% MACE over next 6 weeks - Admit for Clinical Observation Score 7 - 10: 72.7% MACE over next 6 weeks - Early Invasive Strategies Course & Med Decision Making: Course & Med Decision Making Pertinent Labs and Imaging studies reviewed. (See chart for details) [] Patient is a 34-year-old male being seen in the ER for low back pain. An x- ray was performed of his lumbar spine and it was mild multilevel lumbar spondylosis. Patient was treated in the ER with pain medication and a muscle relaxer. Patient has been seen previously in this ER for his chronic back pain. He is advised to follow-up with his primary care provider regarding management of his chronic pain. Per [facility], patient has been seen by many different healthcare providers. He received 40 tablets of Tylenol with codeine on October 31, 2014 tablets of tramadol on November 10, 1939 tablets of diazepam on November 21, 1959 tablets of tramadol on November 26. Dragon Disclaimer: Dragon Disclaimer: This electronic medical record was generated, in whole or in part, using a voice recognition dictation system. Departure Departure: Impression: Primary Impression: Low back pain Qualified Codes: M54.5 - Low back pain; G89.29 - Other chronic pain Disposition: HOME / SELF CARE / HOMELESS Condition: GOOD Referrals: JUAN HOYOS MD (PCP) Patient Instructions: Back Pain, Adult Additional Instructions: You were seen in the ER for low back pain. The x-ray of your lumbar spine was unchanged from your previous study. You were treated in the ER with an anti- inflammatory medication and a muscle relaxer. Please continue taking the Valium that was previously prescribed to you by your primary care provider. You can also take ibuprofen/naproxen at home. You will need to follow-up with your primary care provider for management of your chronic low back pain. If you develop increased low back pain, loss of bowel or bladder, difficulty bearing weight or ambulating, numbness or tingling in your groin please return to the ER immediately. EMERGENCY DEPARTMENT GENERAL DISCHARGE INSTRUCTIONS Thank you for coming to [facility] (ED) today and trusting us with you care. We trust that you had a positivie experience in our Emergency Department. If you wish to speak to the department management, you may call the director at [phone]. YOUR FOLLOW UP INSTRUCTIONS ARE FOLLOWS: 1. Do you have a private Doctor? If you do not have a private doctor, please ask for a resource list of physicians or clinics that may be able to assist you with follow up care. 2. The Emergency Physician has interpreted your x-rays. The X-Ray specialist will also review them. If there is a change in the findings, you will be notified in 48 hours when at all possible. 3. A lab test or culture has been done, your results will be reviewed and you will be notified if you need a change in treatment. ADDITIONAL INSTRUCTIONS AND INFORMATION: 1. Your care today has been supervised by a physician who is specially trained in emergency care. Many problems require more than one evaluation for a complete diagnosis and treatment. We recommend that you schedule your follow up appointment as recommended to ensure complete treatment of you illness or injury. If you are unable to obtain follow up care and continue to have a problem, or if your condition worsens, we recommend that you return to the ED. 2. We are not able to safely determine your condition over the phone nor are we able to give sound medical advice over the phone. For these safety reasons, if you call for medical advice we will ask you to come to the ED for further evaluation. 3. If you have any questions regarding these discharge instructions please call the ED at [phone]. SAFETY INFORMATION: In the interest of safety, wellness, and injury prevention; we encourage you to wear your sealbelt, if you smoke; quite smoking, and we encourage family to use a protective helmet for bicycling and other sporting events that present an increased risk for head injury. IF YOUR SYMPTOMS WORSEN OR NEW SYMPTOMS DEVELOP, OR YOU HAVE CONCERNS ABOUT YOUR CONDITION; OR IF YOUR CONDITION WORSENS WHILE YOU ARE WAITING FOR YOUR FOLLOW UP APPOINTMENT; EITHER CONTACT YOUR PRIMARY CARE DOCTOR, THE PHYSICIAN WHOSE NAME AND NUMBER YOU WERE GIVEN, OR RETURN TO THE ED IMMEDIATELY. CADEN AREVALO APRN Dec 02, 2020 20:21
--- NOTE | 2020-12-02 20:50 | RAD ---
XR LUMBAR SPINE 2-3V History: Reason: INJURY 12/01, HX CHRONIC LOW BACK PAIN / Spl. Instructions: / History: Technique: 3 views lumbar spine. Comparison: November 09, 2019 Findings: Normal vertebral body height and alignment. No fracture. Mild degenerative disc changes most prominen t L3-L4 and L5-S1. Impression: 1. Mild multilevel lumbar spondylosis, unchanged. Electronically signed by: Kieran Romo DO (12/02/2020 8:48 PM) [facility]
== END 2020-12-02 21:05 | disposition home or self-care (01) ==
LOC: ER 19:55
DX: M54.5 Low back pain (principal); G89.29 Other chronic pain; M19.90 Unspecified osteoarthritis, unspecified site; Z88.5 Allergy status to narcotic agent
CPT/HCPCS: 72100; 96372; 99284; J1885; J2360

== ENCOUNTER 2021-02-28 16:34 | Emergency (ER) | payer MEDICARE ==
[~2021-02-28] VITALS: Ht 177.8 cm; Wt 70.0 kg
[~2021-02-28 16:34] MED LIST changes: -CYCL-331 PO; +CYCL10TA19 PO
[2021-02-28 16:45] VITALS: BP 130/99
[2021-02-28] MEDS ORDERED: HYDROcodone/APAP 7.5/325MG 1 TAB TABLET PO ONE (17:00)
[2021-02-28] MEDS ORDERED: predniSONE 20 MG TABLET PO ONE (17:00)
--- NOTE | 2021-02-28 17:10 | PHYS DOC ---
Past History Past Medical History: Angina, Arthritis, Other Additional Past Medical Histor: chronic back pain Past Surgical History: Other Additional Past Surgical Histo: VASECTOMY;reconstructed lt side of face; lipoma from lt shoulder Smoking: Non-smoker Additional Smoking Information: Chews Alcohol Use: None Drug Use: None General Adult EDM: Chief Complaint: BACK PAIN OR INJURY HPI: HPI: 35-year-old male presents with low back pain. The patient fell out of his hunting tree stand. He fell about 10 feet. He hit a branch on the way down. He is mostly concerned about the low back pain and difficulty standing up straight. He denies any numbness, tingling, or altered sensation in his legs or perineal area. He denies any other injuries at this time. Review of Systems: Review of Systems: Constitutional: Denies fever or chills Eyes: Denies change in visual acuity HENT: Denies nasal congestion or sore throat Respiratory: Denies cough or shortness of breath Cardiovascular: Denies chest pain or edema GI: Denies abdominal pain, nausea, vomiting, bloody stools or diarrhea : Denies dysuria Musculoskeletal: Low back pain Integument: Denies rash Neurologic: Denies headache, focal weakness or sensory changes Endocrine: Denies polyuria or polydipsia Lymphatic: Denies swollen glands Psychiatric: Denies depression or anxiety Current Medications: Current Meds: Current Medications Medications (Trade) Dose Ordered Sig/Enrique Start Time Stop Time Status Last Admin Dose Admin Acetaminophen/ Hydrocodone Bitart (Lortab 7.5/325) 1 tab 1X ONCE 02/28/21 17:00 02/28/21 17:01 UNV Prednisone (Prednisone) 60 mg 1X ONCE 02/28/21 17:00 02/28/21 17:01 UNV Allergies: Allergies: Allergies Coded Allergies Type Severity Reaction Last Updated Verified cyclobenzaprine Allergy Unknown 02/28/21 Yes hydromorphone Allergy Unknown ITCHY/RASH 02/28/21 Yes Physical Exam: PE: Constitutional: Well developed, well nourished, mild acute distress, non-toxic appearance. [] HENT: Normocephalic, atraumatic, bilateral external ears normal, oropharynx moist, no oral exudates, nose normal. [] Eyes: PERRLA, EOMI, conjunctiva normal, no discharge. [] Neck: Normal range of motion, no tenderness, supple, no stridor. [] Cardiovascular: Heart rate regular rhythm, no murmur [] Lungs & Thorax: Bilateral breath sounds clear to auscultation [] Abdomen: Bowel sounds normal, soft, no tenderness, no masses, no pulsatile masses. [] Skin: Warm, dry, no erythema, no rash. [] Back: Lower lumbar tenderness, left sacroiliac tenderness. [] Extremities: No tenderness, no cyanosis, no clubbing, ROM intact, no edema. [] Neurologic: Alert and oriented X 3, normal motor function, normal sensory f unction, no focal deficits noted. [] Psychologic: Affect normal, judgement normal, mood normal. [] Current Patient Data: Vital Signs: Vital Signs Date Time Temp Pulse Resp B/P (MAP) Pulse Ox O2 Delivery O2 Flow Rate FiO2 02/28/21 16:45 97.7 98 18 130/99 (109) 100 EKG: EKG: [] Radiology/Procedures: Radiology/Procedures: [] Heart Score: C/O Chest Pain: N/A Risk Factors: Risk Factors: DM, Current or recent (<one month) smoker, HTN, HLP, family his tory of CAD, obesity. Risk Scores: Score 0 - 3: 2.5% MACE over next 6 weeks - Discharge Home Score 4 - 6: 20.3% MACE over next 6 weeks - Admit for Clinical Observation Score 7 - 10: 72.7% MACE over next 6 weeks - Early Invasive Strategies Course & Med Decision Making: Course & Med Decision Making Pertinent Labs and Imaging studies reviewed. (See chart for details) The patient's lumbar x-rays are negative for fracture or other significant acute findings. I have given the patient 1 [place] 7.5/325 in the ER along with 60 mg of prednisone. The patient is allergic to Flexeril. I will discharge him with prescription for [place] 5/325 for his pain. Advised he can also take ibuprofen and should ice the area multiple times a day. He is stable for discharge at this time. [] Dragon Disclaimer: Dragon Disclaimer: This electronic medical record was generated, in whole or in part, using a voice recognition dictation system. Departure Departure: Impression: Primary Impression: Low back pain Qualified Codes: M54.50 - Low back pain, unspecified Additional Impression: Fall from tree Qualified Codes: W14.XXXA - Fall from , initial encounter Disposition: HOME / SELF CARE / HOMELESS Condition: STABLE Referrals: JUAN HOYOS MD (PCP) Patient Instructions: Low Back Sprain with [facility] Scripts Hydrocodone/Acetaminophen (Hydrocodone-Acetamin 5-325 mg) 1 Each Tablet 1 EACH PO Q4-6HRS PRN for PAIN, #10 TAB Prov: KERRI LAGUNA DO 02/28/21 KERRI LAGUNA DO Feb 28, 2021 17:10
[2021-02-28] MEDS ORDERED: HYDR-2759 PO (17:31)
--- NOTE | 2021-02-28 17:42 | RAD ---
EXAM: LUMBAR SPINE 3 VIEWS. HISTORY: Fall from tree, pain COMPARISON: 12/02/2020. FINDINGS: Alignment is maintained. Vertebral body heights are maintained, and no fractures are identi fied. There is mild degenerative disc disease at L3-4. Stool throughout the colon is consistent with constipation. IMPRESSION: 1. Mild degenerative disc disease at L3-4. 2. Correlate for constipation. Electronically signed by: Adele Farr MD (02/28/2021 5:40 PM) [facility]
== END 2021-02-28 17:47 | disposition home or self-care (01) ==
LOC: ER 16:34
DX: M54.59 Other low back pain (principal); M19.90 Unspecified osteoarthritis, unspecified site; F17.220 Nicotine dependence, chewing tobacco, uncomplicated; Z88.5 Allergy status to narcotic agent; Z88.8 Allergy status to other drugs, medicaments and biological substances; W14.XXXA Fall from tree, initial encounter; Y93.89 Activity, other specified; Y92.89 Other specified places as the place of occurrence of the external cause; Y99.8 Other external cause status
CPT/HCPCS: 72100; 99283; J7512

== ENCOUNTER 2021-03-27 17:38 | Emergency (ER) | payer MEDICARE ==
[~2021-03-27] VITALS: Ht 177.8 cm; Wt 70.0 kg
[~2021-03-27 17:38] MED LIST changes: +HYDR-2759 PO
[2021-03-27] MEDS ORDERED: HYDR-2155 PO (18:27)
[2021-03-27] MEDS ORDERED: LIDO700A21 TP (18:27)
--- NOTE | 2021-03-27 18:29 | PHYS DOC ---
Past History Past Medical History: Angina, Arthritis, Other Additional Past Medical Histor: chronic back pain (CADEN AREVALO APRN) Past Surgical History: Other Additional Past Surgical Histo: VASECTOMY;reconstructed lt side of face; lipoma from lt shoulder (CADEN AREVALO APRN) Smoking: Non-smoker Alcohol Use: None Drug Use: None (CADEN AREVALO APRN) General Adult EDM: Chief Complaint: BACK PAIN - NO INJURY HPI: HPI: Patient is a 35-year-old male who presents to the emergency department for chronic low back pain. Patient has been seen multiple times in this emergency department for his chronic low back pain as well as other hospitals. He has a MRI of his lumbar spine report that shows marked degenerative changes at the L3 and L4 level, mild central disc protrusion at L3/L4 is slightly impinging on the thecal sac with no disc protrusion, spinal stenosis, neuroforaminal in regimen or nerve root impingement. Patient rates his pain 10 out of 10. He received 5 mg Percocets on 12 March and a 4-day supply of 10 mg Percocets on March 15. Patient denies any new injuries. He denies loss of bowel or bladder, saddle anesthesias, numbness or tingling down his legs, any radiation of pain, urinary symptoms. Patient has a appointment with a desktop specialist on April 15. (CADEN AREVALO APRN) Review of Systems: Review of Systems: : See HPI Musculoskeletal: See HPI Integument: See HPI Neurologic: See HPI (CADEN AREVALO APRN) Allergies: Allergies: Allergies Coded Allergies Type Severity Reaction Last Updated Verified cyclobenzaprine Allergy Unknown 02/28/21 Yes hydromorphone Allergy Unknown ITCHY/RASH 02/28/21 Yes (CADEN AREVALO APRN) Physical Exam: PE: Constitutional: Well developed, well nourished, no acute distress, non-toxic appearance. [] HENT: Normocephalic, atraumatic, bilateral external ears normal, oropharynx moist, no oral exudates, nose normal. [] Eyes: PERRL, EOMI, conjunctiva normal, no discharge. [] Neck: Normal range of motion, no bony spinal tenderness, supple, no stridor. [] Cardiovascular:Heart rate regular rhythm, no murmur [] Lungs & Thorax: Bilateral breath sounds clear to auscultation [] Abdomen: Bowel sounds normal, soft, no tenderness, no masses, no pulsatile mas ses. [] Skin: Warm, dry, no erythema, no rash. [] Back: Midline lumbar tenderness with palpation, no crepitus palpated, no CVA tenderness, normal range of motion. [] Extremities: No tenderness, no cyanosis, no clubbing, ROM intact, no edema. [] Neurologic: Alert and oriented X 3, normal motor function, normal sensory function, no focal deficits noted. [] Psychologic: Affect normal, judgement normal, mood normal. [] (CADEN AREVALO APRN) Current Patient Data: Vital Signs: Vital Signs Date Time Temp Pulse Resp B/P (MAP) Pulse Ox O2 Delivery O2 Flow Rate FiO2 03/27/21 17:48 75 18 147/95 (112) 100 Room Air (CADEN AREVALO APRN) EKG: EKG: [] (CADEN AREVALO APRN) Radiology/Procedures: Radiology/Procedures: [] (CADEN AREVALO APRN) Heart Score: C/O Chest Pain: N/A Risk Factors: Risk Factors: DM, Current or recent (<one month) smoker, HTN, HLP, family history of CAD, obesity. Risk Scores: Score 0 - 3: 2.5% MACE over next 6 weeks - Discharge Home Score 4 - 6: 20.3% MACE over next 6 weeks - Admit for Clinical Observation Score 7 - 10: 72.7% MACE over next 6 weeks - Early Invasive Strategies (CADEN AREVALO APRN) Course & Med Decision Making: Course & Med Decision Making Pertinent Labs and Imaging studies reviewed. (See chart for details) [] Patient presents to the emergency department today for chronic low back pain. Patient denies any new injuries. She denies any loss of bowel or bladder, saddle anesthesias, numbness or tingling in his extremities, urinary symptoms. Patient will be treated for his pain with a lidocaine patch and pain medication. He was given a couple of days of pain medication to go home with and advised to follow-up with his primary care provider Dr. Sparrow and the spinal surgeon. I discussed with patient all findings and diagnostic testing as well as the need to follow-up with PCP for further evaluation and treatment or return to the ER if any new or worsening symptoms. Strict return precautions were also discussed at length. Patient voiced understanding and agreement with the plan. Patient is hemodynamically stable at the time of disposition. (CADEN AREVALO APRN) Course & Med Decision Making Did not see or evaluate patient. Did not discuss patient with WELL FLOW OPERATOR. Agree with WELL FLOW OPERATOR's work-up and disposition per note. (ANNA PHAN MD) Dragon Disclaimer: Dragon Disclaimer: This electronic medical record was generated, in whole or in part, using a voice recognition dictation system. (CADEN AREVALO APRN) Departure Departure: Impression: Primary Impression: Low back pain Qualified Codes: M54.50 - Low back pain, unspecified; G89.29 - Other chronic pain Disposition: HOME / SELF CARE / HOMELESS Condition: GOOD Referrals: JUAN HOYOS MD (PCP) Patient Instructions: Chronic Back Pain Additional Instructions: You were seen in the emergency department today for low back pain. You were treated in the emergency department with a lidocaine patch and pain medication. You will be discharged home with pain medication. Please use this as directed. This medication may cause sedation so do not take need to be alert, driving a vehicle or with alcohol. You are also being discharged home with a lidocaine patch, please remove after 12 hours. If you require any additional pain management, you need to follow-up with your primary care provider. In the emergency department we do not manage chronic pain. Please return to the emergency department if you develop any new injuries, loss of bowel or bladder, numbness or tingling in your groin or down your extremities or any urinary symptoms. Follow-up with your primary care provider on Monday regarding your ER visit. Please call your spinal specialist to follow-up. Scripts Lidocaine (Lidocaine PATCH ) 1 Each Adh..patch 1 EACH TP DAILY for FOR LOCAL PAIN for 3 Days, #3 PATCH 0 Refills REMOVE AFTER 12 HOURS Prov: CADEN AREVALO APRN 03/27/21 Hydrocodone Bit/Acetaminophen (HYDROCODONE-APAP 5-325 ) 1 Each Tablet 1 TAB PO PRN Q6HRS PRN for PAIN for 2 Days, #8 TAB 0 Refills Prov: CADEN AREVALO APRN 03/27/21 CADEN AREVALO APRN Mar 27, 2021 18:29 ANNA PHAN MD Mar 27, 2021 19:35
[2021-03-27] MEDS ORDERED: HYDROcodone/APAP 5/325MG 1 TAB TABLET PO ONE (18:30)
[2021-03-27] MEDS ORDERED: LIDOCAINE (700MG/PATCH) PATCH. TD SCH (18:30)
[2021-03-27 18:45] VITALS: BP 118/72
[2021-03-28] MEDS ORDERED: PATCH REMOVAL. MC SCH (21:00)
== END 2021-03-27 18:46 | disposition home or self-care (01) ==
LOC: ER 17:38
DX: M54.50 Low back pain, unspecified (principal); G89.29 Other chronic pain
CPT/HCPCS: 99283-25

== ENCOUNTER 2021-04-12 20:23 | Emergency (ER) | payer MEDICARE ==
[~2021-04-12] VITALS: Ht 177.8 cm; Wt 72.7 kg
[~2021-04-12 20:23] MED LIST changes: +LIDO700A21 TP
[2021-04-12] MEDS ORDERED: PATCH REMOVAL. MC SCH (21:00)
[2021-04-12] MEDS ORDERED: LIDOCAINE (700MG/PATCH) PATCH. TD ONE (21:30)
[2021-04-12] MEDS ORDERED: ORPHENADRINE CITRATE 60 MG/2 ML VIAL. IM ONE (21:30)
[2021-04-12] MEDS ORDERED: KETOROLAC 60 MG/2 ML VIAL. IM ONE (21:30)
--- NOTE | 2021-04-12 22:27 | PHYS DOC ---
Past History Past Medical History: Angina, Arthritis, Other Additional Past Medical Histor: DDD (FREDY JENKINS) Past Surgical History: Other Additional Past Surgical Histo: vasectomy, fatty removed from L shoulder, left side facial reconstruction (FREDY JENKINS) Smoking: Non-smoker Alcohol Use: None Drug Use: None (FREDY JENKINS) General Adult EDM: Chief Complaint: MECHANICAL FALL HPI: HPI: Patient is a 35 year old male with history of chronic back pain who presents wit h back pain and posterior head pain status post fall on stairs. Patient rates his pain 10/10 nonradiating to the occipital portion of his head extending to his neck as well as his low back. He states he was carrying luggage down a set of stairs, when he lost his footing and hit his low back and his neck/head on the stairs. Patient is under the care currently of a spinal specialist who manages his pain and treatment for degenerative disc disease. Patient denies loss of consciousness, disorientation, nausea, vomiting, saddle anesthesia, bowel or bladder incontinence, IV drug use. (FREDY JENKINS) Review of Systems: Review of Systems: ROS negative except as mentioned in HPI. (FREDY JENKINS) Current Medications: Current Meds: Current Medications Medications (Trade) Dose Ordered Sig/Enrique Start Time Stop Time Status Last Admin Dose Admin Ketorolac Tromethamine (Toradol Im) 60 mg 1X ONCE 04/12/21 21:30 04/12/21 21:31 DC 04/12/21 21:51 60 MG Lidocaine (Lidoderm) 1 patch 1X ONCE 04/12/21 21:30 04/12/21 21:31 DC 04/12/21 21:56 1 PATCH Miscellaneous (Lidoderm Patch Removal) 1 ea QHS 04/12/21 21:00 Orphenadrine Citrate (Norflex) 60 mg 1X ONCE 04/12/21 21:30 04/12/21 21:31 DC 04/12/21 21:53 60 MG (FREDY JENKINS) Allergies: Allergies: Allergies Coded Allergies Type Severity Reaction Last Updated Verified cyclobenzaprine Allergy Unknown 04/12/21 Yes hydromorphone Allergy Unknown ITCHY/RASH 04/12/21 Yes tramadol Allergy Unknown Anxiety 04/12/21 Yes (FREDY JENKINS) Physical Exam: PE: Constitutional: Well developed, well nourished, patient appears to be in pain, non-toxic appearance. HENT: Normocephalic, atraumatic, bilateral external ears normal, no postauricular ecchymosis or discharge from the ears, oropharynx moist, no oral exudates, nose without obvious deformity or discharge. Eyes: PERRLA, EOMI, conjunctiva normal, no discharge. Neck: Active range of motion limited secondary to pain, no step-offs, mild midline tenderness, supple, no stridor. Cardiovascular: Heart rate regular rhythm, no murmur. Lungs & Thorax: Bilateral breath sounds clear to auscultation. Skin: Warm, dry, no erythema, no rash, no abrasion, no laceration. Back: No step-offs, tenderness overlying lumbar spine and SI joints bilaterally, no CVA tenderness. Extremities: No tenderness, no cyanosis, no clubbing, ROM intact, no edema. Neurologic: Alert and oriented x3, gross strength in extremities 5/5 including great toe dorsiflexion bilaterally, no gait disturbances, sensory function grossly intact, no focal deficits noted. (FREDY JENKINS) Current Patient Data: Vital Signs: Vital Signs Date Time Temp Pulse Resp B/P (MAP) Pulse Ox O2 Delivery O2 Flow Rate FiO2 04/12/21 21:02 98.0 82 16 99 Room Air (FREDY JENKINS) Radiology/Procedures: Radiology/Procedures: PROCEDURE: CT LUMBAR SPINE WO CONTRAST EXAM: CT lumbar spine without IV contrast CLINICAL HISTORY:Reason: low back trauma / Spl. Instructions: / History: COMPARISON: None available. TECHNIQUE: Helical CT was performed through the lumbar spine. Axial, coronal and sagittal reformatted images were generated. PQRS compliance statement - One or more of the following individualized dose reduction techniques were utilized for this study: 1. Automated exposure control 2. Adjustment of the mA and/or kV according to patient size 3. Use of iterative reconstruction technique FINDINGS: Mild L3-4 disc height loss. Associated Schmorl's nodes are seen. Vertebral body heights are preserved. No acute fracture. Straightening of the normal lumbar lordosis. No spondylolisthesis. No high-grade central canal stenosis. IMPRESSION: Mild L3-4 disc height loss with associated Schmorl's nodes. No acute fracture or subluxation. Electronically signed by: Clayton Ibanez MD (04/12/2021 10:40 PM) SHEYLA PROCEDURE: CT HEAD AND CERVICAL SPINE WO EXAM: CT HEAD WITHOUT IV CONTRAST CLINICAL HISTORY: Reason: head neck trauma TRY @ 10:10 COMPARISON: None. TECHNIQUE: Routine CT of the head without contrast. Soft tissues and bone windows were reviewed. PQRS compliance statement - One or more of the following individualized dose reduction techniques were utilized for this study: 1. Automated exposure control 2. Adjustment of the mA and/or kV according to patient size 3. Use of iterative reconstruction technique FINDINGS: There is no evidence of hemorrhage, mass or extra-axial fluid collection. Celeste-white differentiation is maintained with no evidence of edema. There is no mass effect or shift of the intracranial structures. The ventricles, basilar cisterns and cortical sulci are normal in size and configuration for the patients stated age. The cerebellum and brainstem are unremarkable. The calvarium demonstrates no evidence of fracture or focal lesion. There is normal aeration of the visualized paranasal sinuses and mastoid air cells. The visualized portions of the orbits are normal. IMPRESSION: No evidence for acute intracranial process. EXAM: CT CERVICAL SPINE WITHOUT IV CONTRAST CLINICAL HISTORY: Reason: head neck trauma TRY @ 10:10 COMPARISON: None available. TECHNIQUE: Helical CT of the cervical spine was performed. Axial, coronal and sagittal reformatted images were also performed. PQRS compliance statement - One or more of the following individualized dose reduction techniques were utilized for this study: 1. Automated exposure control 2. Adjustment of the mA and/or kV according to patient size 3. Use of iterative reconstruction technique FINDINGS: Vertebral body heights are preserved. No spondylolisthesis. Straightening of the normal cervical lordosis. Intervertebral disc heights are preserved. IMPRESSION: No acute cervical spine fracture or subluxation. Electronically signed by: Clayton Ibanez MD (04/12/2021 10:48 PM) SHEYLA (FREDY JENKINS) Heart Score: C/O Chest Pain: No (FREDY JENKINS) Course & Med Decision Making: Course & Med Decision Making Pertinent Labs and Imaging studies reviewed. (See chart for details) Patient presents with exacerbation of chronic pain pain secondary to injury. Patient states he is currently under care of a spinal specialist. His last MRI was 03/15/2021. Today, he has increased pain to his posterior head, neck, lumbar spine. Imaging ordered today to evaluate for acute fracture or dislocation. Immediately after administration of medications, patient states to nursing staff, "I hope this works, because if it does not I'm not laying down for the CT." Per nursing staff, patient was reassured and asked to give the medication time to take effect. Patient was counseled on appropriate use of pain medications, and that imaging studies can help us determine medical indication. Patient agrees to imaging scans without further encouragement. No new traumatic injury seen on imaging. Patient will be discharged home with return precautions and instruction to follow-up with his primary care and/or his spine doctor, who prescribes pain medications for him. Patient understands and is agreeable to discharge plan. (FREDY JENKINS) Course & Med Decision Making Did not see or evaluate patient. Did not discuss patient with CLAIM TECHNICIAN. Agree with CLAIM TECHNICIAN's work-up and disposition per note. (ANNA PHAN MD) Dragon Disclaimer: Dragon Disclaimer: This electronic medical record was generated, in whole or in part, using a voice recognition dictation system. (FREDY JENKINS) Departure Departure: Impression: Primary Impression: Acute exacerbation of chronic low back pain Additional Impressions: Contusion of head and neck region Contusion of lower back Qualified Codes: S30.0XXA - Contusion of lower back and pelvis, initial encounter Disposition: HOME / SELF CARE / HOMELESS Condition: STABLE Referrals: PCP,NO (PCP) Patient Instructions: Back Pain, Adult, [id number], Contusion, [id number] Additional Instructions: As discussed, there is no evidence of acute injury on your imaging scans today. You should follow-up with your primary care provider as well as your market research specialist regarding today's visit. For pain and inflammation control, take up to 800 mg ibuprofen every 6 hours as needed as well as using daily Lidoderm patches. You may return to the emergency department if your pain becomes uncontrollable at home or you develop new symptoms. FREDY JENKINS Apr 12, 2021 22:27 ANNA PHAN MD Apr 12, 2021 23:29
--- NOTE | 2021-04-12 22:42 | RAD ---
EXAM: CT lumbar spine without IV contrast CLINICAL HISTORY:Reason: low back trauma / Spl. Instructions: / History: COMPARISON: None available. TECHNIQUE: Helical CT was performed through the lumbar spine. Axial, coronal and sagittal reformatted images were generated. PQRS compliance statement - One or more of the following individualized dose reduction techniques wer e utilized for this study: 1. Automated exposure control 2. Adjustment of the mA and/or kV according to patient size 3. Use of iterative reconstruction technique FINDINGS: Mild L3-4 disc height loss. Associated Schmorl's nodes are seen. Vertebral body heights are preserved . No acute fracture. Straightening of the normal lumbar lordosis. No spondylolisthesis. No high-grade central canal stenosis. IMPRESSION: Mild L3-4 disc height loss with associated Schmorl's nodes. No acute fracture or subluxation. Electronically signed by: Clayton Ibanez MD (04/12/2021 10:40 PM) SHEYLA
--- NOTE | 2021-04-12 22:50 | RAD ---
EXAM: CT HEAD WITHOUT IV CONTRAST CLINICAL HISTORY: Reason: head neck trauma TRY @ 10:10 COMPARISON: None. TECHNIQUE: Routine CT of the head without contrast. Soft tissues and bone windows were reviewed. PQRS compliance statement - One or more of the following individualized dose reduction techniques wer e utilized for this study: 1. Automated exposure control 2. Adjustment of the mA and/or kV according to patient size 3. Use of iterative reconstruction technique FINDINGS: There is no evidence of hemorrhage, mass or extra-axial fluid collection. Celeste-white differentiation is maintained with no evidence of edema. There is no mass effect or shift of the intracranial structures. The ventricles, basilar cisterns and cortical sulci are normal in size and configuration for the tiera ents stated age. The cerebellum and brainstem are unremarkable. The calvarium demonstrates no evidence of fracture or focal lesion. There is normal aeration of the visualized paranasal sinuses and mastoid air cells. The visualized portions of the orbits are normal. IMPRESSION: No evidence for acute intracranial process. EXAM: CT CERVICAL SPINE WITHOUT IV CONTRAST CLINICAL HISTORY: Reason: head neck trauma TRY @ 10:10 COMPARISON: None available. TECHNIQUE: Helical CT of the cervical spine was performed. Axial, coronal and sagittal reformatted im ages were also performed. PQRS compliance statement - One or more of the following individualized dose reduction techniques wer e utilized for this study: 1. Automated exposure control 2. Adjustment of the mA and/or kV according to patient size 3. Use of iterative reconstruction technique FINDINGS: Vertebral body heights are preserved. No spondylolisthesis. Straightening of the normal cervical lordosis. Intervertebral disc heights are preserved. IMPRESSION: No acute cervical spine fracture or subluxation. Electronically signed by: Clayton Ibanez MD (04/12/2021 10:48 PM) JOSUEBREE
[2021-04-12 22:55] VITALS: BP 122/84
== END 2021-04-12 23:00 | disposition home or self-care (01) ==
LOC: ER 20:23
DX: S30.0XXA Contusion of lower back and pelvis, initial encounter (principal); S00.93XA Contusion of unspecified part of head, initial encounter; S10.93XA Contusion of unspecified part of neck, initial encounter; G89.29 Other chronic pain; M19.90 Unspecified osteoarthritis, unspecified site; Z88.5 Allergy status to narcotic agent; Z88.8 Allergy status to other drugs, medicaments and biological substances; W10.8XXA Fall (on) (from) other stairs and steps, initial encounter; Y93.89 Activity, other specified; Y92.89 Other specified places as the place of occurrence of the external cause; Y99.8 Other external cause status
CPT/HCPCS: 70450; 72125; 72131; 96372; 99284; J1885; J2360

== ENCOUNTER 2021-04-25 20:10 | Emergency (ER) | payer MEDICARE ==
[~2021-04-25] VITALS: Ht 177.8 cm; Wt 72.7 kg
[2021-04-25 20:28] VITALS: BP 102/83
--- NOTE | 2021-04-25 20:47 | PHYS DOC ---
Past History Past Medical History: Angina, Arthritis, Other Additional Past Medical Histor: DDD (MANUEL GAMINO APRN) Past Surgical History: Other Additional Past Surgical Histo: vasectomy, fatty removed from L shoulder, left side facial reconstruction (MANUEL GAMINO APRN) Smoking: Non-smoker Alcohol Use: None Drug Use: None (MANUEL GAMINO APRN) Adult General Chief Complaint Chief Complaint: LOWER BACK PAIN OR INJURY HPI HPI Patient is a 35-year-old male who presents emergency department complaining of low back pain after slipping and falling down 3 steps 2 days ago. Patient reports he has a long history of low back pain exacerbations, has recently been fired from his primary care physician and can no longer obtain Valium or Percocet or [place] for pain. Patient reports he had an MRI of his vertebral spine a week ago I was told by a spine surgeon there was no surgery that could help him. Patient denies a history of IV drug use, immunosuppression, cancers, recent fevers or chills, numbness or tingling to his genitals or buttocks area, denies bowel/bladder incontinence/retention. Patient states he would like to have a prescription for Percocet, Valium, and a steroid. Patient denies other physical complaints or physical concerns. (MANUEL GAMINO APRN) Review of Systems Review of Systems 14 body systems of review of systems have been reviewed. See HPI for pertinent positives and negative responses, otherwise all other systems are negative, nonpertinent or noncontributory. Constitutional: Negative except as outlined in HPI above. Skin: Negative except as outlined in HPI above. Eyes: Negative except as outlined in HPI above. HENT: Negative except as outlined in HPI above. Respiratory: Negative except as outlined in HPI above. Cardiovascular: Negative except as outlined in HPI above. GI: Negative except as outlined in HPI above. : Negative except as outlined in HPI above. Musculoskeletal: Negative except as outlined in HPI above. Integument: Negative except as outlined in HPI above. Neurologic: Negative except as outlined in HPI above. Endocrine: Negative except as outlined in HPI above. Lymphatic: Negative except as outlined in HPI above. Psychiatric: Negative except as outlined in HPI above. (MANUEL GAMINO APRN) Allergies Allergies Allergies Coded Allergies Type Severity Reaction Last Updated Verified cyclobenzaprine Allergy Unknown 04/12/21 Yes hydromorphone Allergy Unknown ITCHY/RASH 04/12/21 Yes tramadol Allergy Unknown Anxiety 04/12/21 Yes (MANUEL GAMINO APRN) Physical Exam Physical Exam Constitutional: Well developed, well nourished, no acute distress, non-toxic appearance. 35-year-old male no apparent distress, patient's complaint of pain level exceeds patient's physical appearance presentation. HENT: Normocephalic, atraumatic. Eyes: Conjunctiva normal, no discharge. Neck: Normal range of motion, no stridor. Cardiovascular: No cyanosis appreciated, distal cap refill less than 2 seconds. Lungs & Thorax: Patient is in no respiratory distress, no audible adventitious lung sounds appreciated. Abdomen: Nontender, no abnormalities noted. Skin: Warm, dry, no erythema, no rash. Back: No deformities of the vertebral spine appreciated, no bruising, no ecchymosis, no edema of the spine appreciated. No left-sided or right-sided CVA TTP. Left and right-sided lumbar pain to palpation of muscular structures. Extremities: No tenderness, no cyanosis, no clubbing, ROM intact, no edema. Neurologic: Alert and oriented X 3, normal motor function, normal sensory function, no focal deficits noted. Psychologic: Affect normal, judgement normal, mood normal. (MANUEL GAMINO APRN) Current Patient Data Vital Signs Vital Signs Date Time Temp Pulse Resp B/P (MAP) Pulse Ox O2 Delivery O2 Flow Rate FiO2 04/25/21 20:28 97.8 104 18 102/83 (89) 98 Room Air (MANUEL GAMINO APRN) EKG EKG [] (MANUEL GAMINO APRN) Radiology/Procedures Radiology/Procedures [] (MANUEL GAMINO APRN) Heart Score C/O Chest Pain: No Risk Factors: Risk Factors: DM, Current or recent (<one month) smoker, HTN, HLP, family history of CAD, obesity. Risk Scores: Risk Factors: DM, Current or recent (<one month) smoker, HTN, HLP, family history of CAD, obesity. (MANUEL GAMINO APRN) Course & Med Decision Making Course & Med Decision Making Pertinent Labs and Imaging studies reviewed. (See chart for details) 35-year-old male, vital signs reviewed, resents emergency department concerning low back pain. Patient's physical presentation concerning for drug-seeking type behavior. Upon extensive chart review, patient has been seen here 8 times in the past 6 months with similar complaints of traumatic back injury with acute ba ck pain. Patient reports he was fired from his primary care physician Dr. Corea who refused to give him any more narcotics or Valium. Patient does report another fall, however no physical evidence of fall apparent. Patient has no saddle anesthesia, emergent imaging not indicated for this visit. Discussed with patient will treat in ED today with steroid injection and p.o. pain medications, however will not prescribe narcotic pain medications for home use. Discussed with patient to continue trying to find a primary care, will recommend pain management physician. Discussed these options with patient, patient is amenable to ED planning. (MANUEL GAMINO APRN) Dragon Disclaimer Dragon Disclaimer This electronic medical record was generated, in whole or in part, using a voice recognition dictation system. (MANUEL GAMINO APRN) Departure Departure: Impression: Primary Impression: Low back pain Disposition: 01 HOME / SELF CARE / HOMELESS Condition: GOOD Referrals: NON,STAFF (PCP) Patient Instructions: Back Pain, Adult Additional Instructions: You are seen today in the emergency department for low back pain. You had indicated your primary care physician will no longer give you pain medications. Please consider following up with the [facility] group located [address] [place] [address], other telephone number is area code [phone]. I strongly encourage you to follow-up with a pain management physician. You may consider using pain management physician specialist Dr. Parviz Velázquez, his office is located at [address] [place] [address] located at the [facility]. The office telephone number is area code [phone], please call tomorrow for an appointment. Thank you for visiting our Emergency Department. It was a pleasure taking care of you today in the emergency department and we appreciate you trusting us with your care. If any additional problems come up don't hesitate to return to visit us. Please follow up with your primary care provider so they can plan additional care if needed and know about the problem that you had. If symptoms worsen come back to the Emergency Department. Any concerning symptoms that start such as chest pain, shortness of air, weakness or numbness on one side of the body, running high fevers or any other concerning symptoms return to the ER. Attending Signature Attending Signature I have participated in the care of this patient and I have reviewed and agree w ith all pertinent clinical information above including history, exam, and recommendations. (EDWIN MULTANI MD) Problem Qualifiers Primary Impression: Low back pain Chronicity: chronic Back pain laterality: unspecified Sciatica presence: without sciatica Qualified Codes: M54.50 - Low back pain, unspecified; G89.29 - Other chronic pain MANUEL GAMINO APRN Apr 25, 2021 20:47 EDWIN MULTANI MD Apr 26, 2021 10:23
[2021-04-25] MEDS ORDERED: oxyCODONE/APAP 10/325 1 TAB TABLET PO ONE (21:00)
[2021-04-25] MEDS ORDERED: methylPREDNISolone ACETATE 80 MG/ML VIAL. IM ONE (21:00)
== END 2021-04-25 21:09 | disposition home or self-care (01) ==
LOC: ER 20:10
DX: M54.59 Other low back pain (principal); G89.29 Other chronic pain; M19.90 Unspecified osteoarthritis, unspecified site; Z88.5 Allergy status to narcotic agent; Z88.8 Allergy status to other drugs, medicaments and biological substances
CPT/HCPCS: 96372; 99283; J1040

== ENCOUNTER 2021-04-28 00:22 | Emergency (ER) | payer MEDICARE ==
[~2021-04-28] VITALS: Ht 177.8 cm; Wt 72.7 kg
[2021-04-28 00:22] VITALS: BP 124/79
--- NOTE | 2021-04-28 00:56 | PHYS DOC ---
Past History Past Medical History: Angina, Arthritis, Other Additional Past Medical Histor: DDD Past Surgical History: Other Additional Past Surgical Histo: vasectomy, fatty removed from L shoulder, left side facial reconstruction Smoking: Non-smoker Alcohol Use: None Drug Use: None Adult General HPI HPI Patient is a 35-year-old male with a past medical history significant for degenerative arthritis in his low back who presents with low back pain. States that he had a recent MRI which showed degenerative arthritis and a bulging disc. States he has been out of his Percocet for the last 5 days and is having some low back pain, 8 out of 10, dull and achy in nature this been going on a couple of days now and has not been able to get a hold of his doctor. States he is tried some ibuprofen at home with some little relief. Review of Systems Review of Systems Review of systems otherwise unremarkable except noted in HPI Allergies Allergies Allergies Coded Allergies Type Severity Reaction Last Updated Verified hydromorphone Allergy Intermediate ITCHY/RASH 04/25/21 Yes cyclobenzaprine Allergy Unknown 04/12/21 Yes tramadol Adverse Reaction Intermediate Anxiety 04/25/21 Yes Physical Exam Physical Exam Constitutional: Well developed, well nourished, no acute distress, non-toxic a ppearance. [] HENT: Normocephalic, atraumatic, bilateral external ears normal, oropharynx moist, no oral exudates, nose normal. [] Cardiovascular:Heart rate regular rhythm, no murmur [] Lungs & Thorax: Bilateral breath sounds clear to auscultation [] Abdomen: soft, no tenderness, no masses, no pulsatile masses. [] Skin: Warm, dry, no erythema, no rash. [] Back: Paraspinal muscle tenderness around lumbar with some spasm, range of motion intact Extremities: No tenderness, no cyanosis, no clubbing, ROM intact, no edema. [] Neurologic: Alert and oriented X 3, normal motor function, normal sensory function, able to sit, stand and walk without issue, no focal deficits noted. [] Psychologic: Affect normal, judgement normal, mood normal. [] EKG EKG [] Radiology/Procedures Radiology/Procedures [] Heart Score C/O Chest Pain: No Risk Factors: Risk Factors: DM, Current or recent (<one month) smoker, HTN, HLP, family history of CAD, obesity. Risk Scores: Risk Factors: DM, Current or recent (<one month) smoker, HTN, HLP, family history of CAD, obesity. Course & Med Decision Making Course & Med Decision Making Patient is a 35-year-old man who presents with back pain Vital signs not concerning. Physical exam noted above. Given pain medicine IM. Discussed pain management at home. Advised to follow-up in the morning with his doctor and painter and body work as well as his orthopedist who he has been working with. Gave return precautions to the ED. Patient grateful, verbalized understanding and agreed with plan of discharge. [] Dragon Disclaimer Dragon Disclaimer This electronic medical record was generated, in whole or in part, using a voice recognition dictation system. Departure Departure: Impression: Primary Impression: Low back pain Disposition: HOME / SELF CARE / HOMELESS Condition: IMPROVED Referrals: NON,STAFF (PCP) JUAN HOYOS MD Patient Instructions: Back Pain, Adult Additional Instructions: Thanks for coming into the emergency department tonight and allowing us to take care of you. Please read the attached information carefully to go over things w e discussed. Please begin a ibuprofen and Tylenol regimen along with the diazepam you are taking. You can take 800 mg of ibuprofen 3 times a day and 1000 mg of Tylenol 3 times a day. Please call your primary care physician/painter and body work first thing in the morning to update on ED visit and set up a follow-up as soon as possible. Please come back with new or concerning symptoms as discussed. ANNA PHAN MD Apr 28, 2021 00:56
[2021-04-28] MEDS ORDERED: KETOROLAC 60 MG/2 ML VIAL. IM ONE (01:00)
[2021-04-28] MEDS ORDERED: MORPHINE SULFATE 4 MG/ML DISP.SYRIN. IM ONE (01:00)
[2021-04-28] MEDS ORDERED: MORPHINE SULFATE 2 MG/ML DISP.SYRIN. IM ONE (01:00)
[2021-04-28] MEDS ORDERED: ACETAMINOPHEN/CODEINE 300/30MG 4TABLET STARTPACK. PO ONE (01:00)
== END 2021-04-28 02:10 | disposition home or self-care (01) ==
LOC: ER 00:22
DX: M54.59 Other low back pain (principal); M62.830 Muscle spasm of back; M19.90 Unspecified osteoarthritis, unspecified site; Z88.5 Allergy status to narcotic agent; Z88.8 Allergy status to other drugs, medicaments and biological substances
CPT/HCPCS: 96372; 99284; J1885; J2270